=== PATIENT | female | born 1930 | race American Indian/Alaskan Native ===

== ENCOUNTER 2018-02-17 13:07 | Inpatient (IN) | payer MEDICARE, MEDICAID ==
[2018-02-17 13:08] VITALS: BMI 28.1
[2018-02-17 14:30] LABS: BASO # 0.1 K/uL (0.0-0.2); BASO % 0.4 % (0.0-2.0); EOS % 0.1 % (0.0-4.0); HEMOGLOBIN 13.8 g/dL (12.0-16.0); LYMPH # 0.5 K/uL (1.0-4.3); LYMPH % 3.1 % (20.0-40.0); MEAN CELL VOLUME 87.7 fl (81.0-99.0); MEAN CORPUSCULAR HGB CONC 31.9 g/dL (33.0-37.0); MEAN PLATELET VOLUME 9.3 fl (7.2-11.7); MONO # 1.1 K/uL (0.0-0.8); MONO % 6.8 % (0.0-10.0); NEUT % 89.6 % (50.0-75.0); PLATELET COUNT 257 K/uL (130-400); RBC 4.95 Mil/uL (3.80-5.20); RED CELL DISTRIBUTION WIDTH 19.4 % (11.5-14.5); WHITE BLOOD COUNT 15.6 K/uL (4.8-10.8)
--- NOTE | 2018-02-17 14:38 | RAD ---
HISTORY: altered mental statu COMPARISON: No prior. FINDINGS: LUNGS: Left basilar opacity likely reflects uhug-gk-vfeljcek pleural effusion with underlying infiltrate or atelectasis not excluded. None is seen at the right. No pneumothorax bilaterally. Cardiac silhouette may be enlarged. No pulmonary vascular derangement appreciable. Midline trachea is noted. Calcified lymph nodes or granulomata are seen at the left greater than right pulmonary hilum. PLEURA: As above. CARDIOVASCULAR: As above. OSSEOUS STRUCTURES: No significant abnormalities. VISUALIZED UPPER ABDOMEN: Normal. OTHER FINDINGS: None. IMPRESSION: Iezd-sj-qxwnfrvr left pleural effusion with underlying airspace disease not excluded at the left base. Likely cardiomegaly.
[2018-02-17 14:40] LABS: CALCIUM 9.7 mg/dL (8.4-10.2); GFR AFRICAN-AMERICAN 40; GFR NON-AFRICAN AMERICAN 33
--- NOTE | 2018-02-17 14:47 | ED PDOC ---
HPI: Altered Mental Status Time Seen by Provider: 02/17/18 13:15 Chief Complaint (Nursing): Altered Mental Status Chief Complaint (Provider): AMS History Per: Patient History/Exam Limitations: Clinical Condition Onset/Duration Of Symptoms: Hrs (today) Current Symptoms Are (Timing): Still Present Additional Complaint(s): Maria T Koenig is an 87 year old female, with a past medical history of renal disease, HTN, anxiety, depression, diabetes, CHF, COPD, behavioral problems, GERD and anemia, who was [facility] geropsychiatric evaluation. Patient was sent for saying the same things rin an agitated way at the jail. In the ER . Patient is repeating the same thing, not comprehending what is being told to her and not following commands PMD: [place] Carroll Past Medical History Reviewed: Historical Data, Nursing Documentation, Vital Signs Vital Signs: Last Vital Signs Temp 98.1 F 02/17/18 13:20 Pulse 111 H 02/17/18 14:41 Resp 22 02/17/18 14:41 BP 239/134 H 02/17/18 14:41 Pulse Ox 99 02/17/18 14:41 - Medical History PMH: Anemia, Anxiety, Arthritis, CAD, CHF, COPD, Depression, Diabetes, Gastrointestinal Ulcer, GERD, HTN, Hypercholesterolemia, Peripheral Edema, Chronic Kidney Disease - Surgical History Surgical History: Coronary Stent - Family History Family History: States: Unknown Family Hx - Living Arrangements Living Arrangements: Detention/Assist Lvng - Immunization History Hx Tetanus Toxoid Vaccination: Yes Hx Influenza Vaccination: Yes Hx Pneumococcal Vaccination: Yes - Home Medications Home Medications: Ambulatory Orders Medication Instructions Recorded Acetaminophen [Tylenol 325mg tab] 650 mg PO Q4 PRN 02/17/18 Acetaminophen [Tylenol 325mg tab] 650 mg PO Q4 PRN 02/17/18 Allopurinol [Zyloprim] 100 mg PO DAILY 02/17/18 Aspirin [Ecotrin] 81 mg PO DAILY 02/17/18 Brinzolamide [Azopt] 1 drop BOTHEYES TID 02/17/18 Calcitriol [Rocaltrol] 0.25 mcg PO DAILY 02/17/18 Ciclopirox [Penlac] 1 appl TOP HS 02/17/18 Diclofenac Sodium [Voltaren] 1 appl TOP BID 02/17/18 Divalproex [Depakote Sprinkles] 125 mg PO TID 02/17/18 Epoetin Carlos [Procrit] 10,000 unit SC TTS 02/17/18 GlipiZIDE [Glucotrol] 10 mg PO BID 02/17/18 Isosorbide Mononitrate [Imdur] 60 mg PO DAILY 02/17/18 Lactulose [Generlac] 30 ml PO DAILY PRN 02/17/18 Latanoprost [Xalatan] 1 drop BOTHEYES HS 02/17/18 Lidocaine 2% Gel [Xylocaine 2% 1 appl TOP QSHIFT 02/17/18 (Uro-Jet)] Linagliptin [Tradjenta] 5 mg PO DAILY 02/17/18 Losartan [Cozaar] 100 mg PO DAILY 02/17/18 M-Vit,Tx,Iron,Mins/Calc/Folic 1 tab PO QPM 02/17/18 [Thera-M Caplet] Metoprolol Tartrate [Lopressor] 25 mg PO Q8 02/17/18 Mirtazapine [Remeron] 15 mg PO HS 02/17/18 Propylene Glycol [Systane Balance] 1 drop BOTHEYES BID 02/17/18 Ranitidine HCl [Zantac] 150 mg PO HS 02/17/18 Sennosides/Docusate Sodium [Stool 1 tab PO BID 02/17/18 Softener-Laxative Tablet] Timolol Maleate [Timoptic-Xe] 1 drop BOTHEYES Q12 02/17/18 Torsemide [Demadex] 100 mg PO DAILY PRN 02/17/18 hydrALAZINE [Apresoline] 50 mg PO Q8 02/17/18 traMADol [Ultram] 50 mg PO Q12 02/17/18 - Allergies Allergies/Adverse Reactions: Allergies Allergy/AdvReac Type Severity Reaction Status Date / Time No Known Allergies Allergy Verified 12/10/17 18:41 Review of Systems Neurological: Positive for: Altered Mental Status Physical Exam - Reviewed Nursing Documentation Reviewed: Yes Vital Signs Reviewed: Yes - Physical Exam Appears: Positive for: Non-toxic Head Exam: Positive for: ATRAUMATIC, NORMOCEPHALIC Skin: Positive for: Normal Color, Warm, Dry Eye Exam: Positive for: Normal appearance Neck: Positive for: Painless ROM Cardiovascular/Chest: Positive for: Regular Rate, Rhythm. Negative for: Murmur Respiratory: Positive for: Normal Breath Sounds. Negative for: Respiratory Distress Gastrointestinal/Abdominal: Positive for: Normal Exam, Soft. Negative for: Tenderness Back: Positive for: Other (incontinent, in diaper) Extremity: Positive for: Normal ROM. Negative for: Deformity Neurologic/Psych: Positive for: Alert (awake), Other (persistently saying the same thing. ) - Laboratory Results Result Diagrams: 02/18/18 06:30 02/18/18 06:30 - ECG Interpretation Of Abn EKG: Appears to be possible atrial flutter O2 Sat by Pulse Oximetry: 99 (RA) Pulse Ox Interpretation: Normal Medical Decision Making Medical Decision Making: Initial Impression: AMS rule out infection, rule out beharbioal dist Initial Plan: --Alcohol serum --BMP --Drug screen, urine --CBC w/ differential --Chest portable [RAD] --Glucose, POC routine --Ativan 1 mg IM --Urine C&S --Urinalysis --Reevaluation 14:36 CXR FINDINGS: LUNGS: Left basilar opacity likely reflects pkye-ra-cjmirmpt pleural effusion with underlying infiltrate or atelectasis not excluded. None is seen at the right. No pneumothorax bilaterally. Cardiac silhouette may be enlarged. No pulmonary vascular derangement appreciable. Midline trachea is noted. Calcified lymph nodes or granulomata are seen at the left greater than right pulmonary hilum. PLEURA: As above. CARDIOVASCULAR: As above. OSSEOUS STRUCTURES: No significant abnormalities. VISUALIZED UPPER ABDOMEN: Normal. OTHER FINDINGS: None. IMPRESSION: Bofb-zy-gzqkgasf left pleural effusion with underlying airspace disease not excluded at the left base. Likely cardiomegaly. 16:57 -Elevated wbc. CXR show possible PNA. Patient cannot be cleared for psych. Patient will be admitted. PMD: Dr. Carroll. -Will contact hospitalist for admission. pt will remain on a 1 to 1 in the ER and as well as upstairs on the floor until seen by psych consult. sugar low, given one amp d50 1755 CT Head FINDINGS: HEMORRHAGE: No intracranial hemorrhage. BRAIN: Moderate atrophy is noted. Moderate to extensive white matter changes are also noted likely represent chronic microvascular ischemic disease. No atrophy or chronic microvascular ischemic changes. VENTRICLES: Unremarkable. No hydrocephalus. CALVARIUM: Unremarkable. PARANASAL SINUSES: Unremarkable as visualized. No significant inflammatory changes. MASTOID AIR CELLS: There is complete opacification of the right mastoid and right middle ear suspicious for otomastoiditis. The left mastoid is grossly unremarkable. OTHER FINDINGS: None. IMPRESSION: No evidence of acute intracranial hemorrhage mass effect or midline shift. Opacification of the right mastoid and middle ear suspicious for otomastoiditis. Moderate atrophy and moderate to extensive white matter changes likely represent chronic microvascular ischemic disease. 1830 Patient has already been given antibiotics and covered for otomastoiditis. Scribe Attestation: Documented by Se Anton, acting as a scribe for Yuliet Johnson MD Provider Scribe Attestation: All medical record entries made by the Scribe were at my direction and personally dictated by me. I have reviewed the chart and agree that the record accurately reflects my personal performance of the history, physical exam, medical decision making, and the department course for this patient. I have also personally directed, reviewed, and agree with the discharge instructions and disposition. Disposition - Clinical Impression Clinical Impression: Altered mental status, Pneumonia - Patient ED Disposition Is Patient to be Admitted: Yes Counseled Patient/Family Regarding: Diagnosis - Disposition Disposition Time: 15:00 Condition: STABLE
[2018-02-17 14:50] LABS: BLOOD UREA NITROGEN 22 mg/dl (7-17)
[2018-02-17 14:55] LABS: LYMPHOCYTE 6 % (20-50); MONOCYTE 7 % (0-10); NEUTROPHIL 87 % (42-75); PLATELET ESTIMATE NORMAL (NORMAL); TOTAL CELLS COUNTED 100
[2018-02-17 14:56] LABS: ANISOCYTOSIS SLIGHT
--- NOTE | 2018-02-17 16:14 | RAD ---
HISTORY: psychiatric clearance COMPARISON: Portable chest 02/17/2018. FINDINGS: LUNGS: Left basilar opacity is unchanged suggestive of likely grmd-xx-zxajbwyk left pleural effusion unchanged compared prior chest radiograph 2:04 p.m.. Underlying atelectasis or infiltrate is not excluded here. Right chest remains unremarkable with cardiomediastinal silhouette stable. PLEURA: No significant pleural effusion identified, no pneumothorax apparent. CARDIOVASCULAR: Cardiomegaly remains likely with left heart border partially obscured by a left basilar opacity. No definite interval pulmonary vascular derangement appreciable. OSSEOUS STRUCTURES: No significant abnormalities. VISUALIZED UPPER ABDOMEN: Normal. OTHER FINDINGS: Left hilar calcified lymph nodes or granuloma reiterated. IMPRESSION: Left basilar sklu-dd-lsrpgjdb pleural effusion again suggested with underlying atelectasis not excluded versus infiltrate. Likely cardiomegaly.
[2018-02-17] MEDS ORDERED: Lidocaine 2% GEL TOP SCH (17:00)
[2018-02-17] MEDS ORDERED: Sodium Chloride 3% for Inhalation 4 ML VIAL.NEB IH PRN (17:03)
[2018-02-17] MEDS: Artificial Tears Opht Soln OU SCH (17:57)
[2018-02-17] MEDS: Divalproex 125 mg Sprinkle Capsule PO SCH (17:57)
--- NOTE | 2018-02-17 17:57 | CT ---
PROCEDURE: CT HEAD WITHOUT CONTRAST. HISTORY: ams COMPARISON: None available. TECHNIQUE: Axial computed tomography images were obtained through the head/brain without intravenous contrast. Radiation dose: Total exam DLP = 1101.74 mGy-cm. This CT exam was performed using one or more of the following dose reduction techniques: Automated exposure control, adjustment of the mA and/or kV according to patient size, and/or use of iterative reconstruction technique. FINDINGS: HEMORRHAGE: No intracranial hemorrhage. BRAIN: Moderate atrophy is noted. Moderate to extensive white matter changes are also noted likely represent chronic microvascular ischemic disease. No atrophy or chronic microvascular ischemic changes. VENTRICLES: Unremarkable. No hydrocephalus. CALVARIUM: Unremarkable. PARANASAL SINUSES: Unremarkable as visualized. No significant inflammatory changes. MASTOID AIR CELLS: There is complete opacification of the right mastoid and right middle ear suspicious for otomastoiditis. The left mastoid is grossly unremarkable. OTHER FINDINGS: None. IMPRESSION: No evidence of acute intracranial hemorrhage mass effect or midline shift. Opacification of the right mastoid and middle ear suspicious for otomastoiditis. Moderate atrophy and moderate to extensive white matter changes likely represent chronic microvascular ischemic disease.
[2018-02-17] MEDS: Docusate-Senna 50 mg-8.6 mg Tab PO SCH (17:58)
[2018-02-17] MEDS: Dorzolamide 2% Ophth Soln OU SCH (17:58)
[2018-02-17] MEDS ORDERED: Dextrose 50% SYRINGE Inj (50 ml) IVP ONE (18:06)
[2018-02-17] MEDS ORDERED: Dextrose 50% SYRINGE Inj (50 ml) ONE (18:08)
[2018-02-17] MEDS: Multivitamin With Minerals Tab PO SCH (18:15)
--- NOTE | 2018-02-17 18:31 | CP.PCM.HP ---
History of Present Illness - History of Present Illness History of Present Illness: This is an 87 year old female with a past medical history of CKD? (although had normal renal function on 12/22/16), essential hypertension, type 2 DM, hypercholesterolemia, bilateral knee arthritis, gouty arthritis, spinal stenosis. diastolic CHF, CAD, gastrointestinal ulceration, presenting to the ED from [facility] due to worsening mental status and agitation. In the ED, the patient was acutely agitated and confused, trying to bite and hit medical staff, requiring 2 mg of Ativan IV before being sedated. She was initally going to be admitted to [facility], however she was found on labwork to have leukocytosis of 15.6 with neutrophilia. CXR shows Left basilar mild/moderate pleural effusion with possible infiltrate vs atelectasis. CT head was done which shows right sided otomastoiditis. She has bilateral pedal edema which is chronic as well. On telemetry the patient was found to be tachycardic with what appears to be atrial flutter. The patient is to be admitted to telemetry for further workup and management. She is unable to give ROS due to alteration of mental status. Present on Admission - Present on Admission Any Indicators Present on Admission: No Review of Systems - Review of Systems Review of Systems: A 12 point review of systems was conducted and found to be negative other than what was mentioned in the HPI. Past Patient History - Infectious Disease Hx of Infectious Diseases: None - Past Medical History & Family History Past Medical History?: Yes Past Family History: Reviewed and not pertinent - Past Social History Smoking Status: Never Smoked Alcohol: None Drugs: Denies Home Situation {Lives}: Alf - CARDIAC Hx Congestive Heart Failure: Yes Hx Hypercholesterolemia: Yes Hx Hypertension: Yes Hx Peripheral Edema: Yes - PULMONARY Hx Chronic Obstructive Pulmonary Disease (COPD): Yes - HEENT Hx HEENT Problems: Yes Hx Cataracts: Yes (both eyes,got operated on) Hx Glaucoma: Yes (ronald. eyes) Other/Comment: uses reading eyeglasses - RENAL Hx Chronic Kidney Disease: Yes - ENDOCRINE/METABOLIC Hx Endocrine Disorders: Yes Hx Diabetes Mellitus Type 2: Yes - HEMATOLOGICAL/ONCOLOGICAL Hx Anemia: Yes - INTEGUMENTARY Hx Dermatological Problems: No - MUSCULOSKELETAL/RHEUMATOLOGICAL Hx Arthritis: Yes - GASTROINTESTINAL Hx Gastrointestinal Disorders: Yes HX Swallowing Problems: Yes (as per HPI) - PSYCHIATRIC Hx Anxiety: Yes Hx Depression: Yes - SURGICAL HISTORY Hx Coronary Stent: Yes - ANESTHESIA Hx Anesthesia: Yes Hx Anesthesia Reactions: No Hx Malignant Hyperthermia: No Meds Allergies/Adverse Reactions: Allergies Allergy/AdvReac Type Severity Reaction Status Date / Time No Known Allergies Allergy Verified 12/10/17 18:41 Physical Exam - Additional Findings Additional findings: Physical exam: Constitutional- elderly confused and demented female, sedated, not oriented Head- NCAT, PERRL Eye- PERRL, EOMI ENT- normal exam, MMM. Neck- normal inspection, supple, no JVD Respiratory- CTAB, rales on left base, no rhonchi Cardiovascular- irregular rate and rhythm, tachycardia +S1, +S2 no MRG GI/Abdominal- normal bowel sounds, soft, no mass, no hsm Skin- warm, dry Extremities Exam- normal capillary refill, normal inspection Neurological Exam- unable to perform Psych- agitated previously, now sedated, confused Results - Vital Signs Recent Vital Signs: Last Vital Signs Temp 98.1 F 02/17/18 13:20 Pulse 104 H 02/17/18 17:58 Resp 22 02/17/18 14:41 BP 159/90 H 02/17/18 17:58 Pulse Ox 99 02/17/18 17:51 - Labs Result Diagrams: 02/17/18 14:20 02/17/18 14:20 Labs: Laboratory Results - last 24 hr 02/17/18 02/17/18 02/17/18 13:28 14:20 14:20 WBC 15.6 H RBC 4.95 Hgb 13.8 Hct 43.4 MCV 87.7 MCH 28.0 MCHC 31.9 L RDW 19.4 H Plt Count 257 MPV 9.3 Neut % (Auto) 89.6 H Lymph % (Auto) 3.1 L [place] % (Auto) 6.8 Eos % (Auto) 0.1 Baso % (Auto) 0.4 Neut # (Auto) 14.0 H Lymph # (Auto) 0.5 L [place] # (Auto) 1.1 H Eos # (Auto) 0.0 Baso # (Auto) 0.1 Neutrophils % (Manual) 87 H Lymphocytes % (Manual) 6 L Monocytes % (Manual) 7 Platelet Estimate Normal Anisocytosis (manual) Slight Sodium 146 Potassium 4.2 Chloride 102 Carbon Dioxide 25 Anion Gap 23 H BUN 22 H Creatinine 1.5 H Est GFR ( Amer) 40 Est GFR (Non-Af Amer) 33 POC Glucose (mg/dL) 87 Random Glucose 76 Calcium 9.7 Alcohol, Quantitative < 10 02/17/18 18:04 WBC RBC Hgb Hct MCV MCH MCHC RDW Plt Count MPV Neut % (Auto) Lymph % (Auto) [place] % (Auto) Eos % (Auto) Baso % (Auto) Neut # (Auto) Lymph # (Auto) [place] # (Auto) Eos # (Auto) Baso # (Auto) Neutrophils % (Manual) Lymphocytes % (Manual) Monocytes % (Manual) Platelet Estimate Anisocytosis (manual) Sodium Potassium Chloride Carbon Dioxide Anion Gap BUN Creatinine Est GFR ( Amer) Est GFR (Non-Af Amer) POC Glucose (mg/dL) 52 L Random Glucose Calcium Alcohol, Quantitative Assessment & Plan - Assessment and Plan (Free Text) Plan: ASSESSMENT/PLAN This is an 87 year old female with a past medical history of CKD? (although had normal renal function on 12/22/16), essential hypertension, type 2 DM, hypercholesterolemia, bilateral knee arthritis, gouty arthritis, spinal stenosis. diastolic CHF, CAD, gastrointestinal ulceration, presenting to the ED from [facility] due to worsening mental status and agitation. In the ED, the patient was acutely agitated and confused, trying to bite and hit medical staff, requiring 2 mg of Ativan IV before being sedated. She was initally going to be admitted to [facility], however she was found on labwork to have leukocytosis of 15.6 with neutrophilia. CXR shows Left basilar mild/moderate pleural effusion with possible infiltrate vs atelectasis. CT head was done which shows right sided otomastoiditis. She has bilateral pedal edema which is chronic as well. On telemetry the patient was found to be tachycardic with what appears to be atrial flutter. The patient is to be admitted to telemetry for further workup and management. 1) Nosocomial pneumonia vs atelectasis, with leukocytosis - Place on telemetry/obs - Consultation with Dr. Wright - Kody/Jasmine to be continued - Blood CX x 2 - sputum CX - f/u urinalysis and urine CX 2) Rapid atrial flutter on EKG, presumably new onset as there is no record of her having this on previous admissions - Consult Dr. Stinson, cardiology - Improved HR now, was tachy due to anxiety likely - Continue Lopressor 25 mg po q8h and titrate up if necessary - Anticoagulation is felt to be contraindicated due to acutely altered mental status and high risk of falls 3) Altered mental status - Toxic encephalopathy superimposed on dementia - Treat underlying pneumonia - Ativan 1 mg IVP PRN for agitation - 1:1 observation - Fall risk precautions - Continue Depakote - Psych consult for dementia 3) Mild diastolic CHF and pulmonary arterial hypertension hx with left sided mild to moderate pleural effusion - As per records - lopressor - Isosorbide mononitrate - Torsemide 100 mg po daily - Cardiology consultation 4) Type 2 DM - Restart diabetic oral medications - Lispro sliding scale - appears well controlled based on previous HGA1C of 6.0 - HGA1C 5) Uncontrolled HTN - Likely worsened acutely due to anxiety - Continue Cozaar 100 mg po daily - Lopressor as above 6) GERD, hx of esophageal ulcers - Continue Pepcid 20 mg po HS 7) DVT prophylaxis - SCDs
[2018-02-17 18:33] LABS: SQUAMOUS EPITHIAL < 1 /hpf (0-5); URINE BACTERIA RARE (<OCC); URINE BILIRUBIN NEGATIVE (NEGATIVE); URINE BLOOD NEGATIVE (NEGATIVE); URINE CLARITY SLIGHTY-CLOUDY (Clear); URINE COLOR YELLOW (YELLOW); URINE GLUCOSE (UA) NEG (Normal); URINE LEUKOCYTE ESTERASE SMALL Leu/uL (Negative); URINE PROTEIN 100 mg/dL (NEGATIVE); URINE UROBILINOGEN 0.2-1.0 mg/dL (0.2-1.0)
[2018-02-17] MEDS ORDERED: Sodium Chloride 0.9% 1,000 ML IV SCH (18:45)
[2018-02-17] MEDS ORDERED: Labetalol 5 mg/ml Inj 20ML IVP STA (18:49)
[2018-02-17 18:52] LABS: BARBITURATES, UR NEGATIVE (NEGATIVE); BENZODIAZEPINES, UR NEGATIVE (NEGATIVE); OPIATES, UR NEGATIVE (NEGATIVE); PHENCYCLIDINE, UR NEGATIVE (NEGATIVE)
[2018-02-17 20:04] LABS: VENOUS BLOOD GAS BASE EXCESS 5.8 mmol/L (0.0-2.0); VENOUS BLOOD GAS PCO2 47 mmHg (40-60); VENOUS BLOOD GAS PO2 51 mm/Hg (30-55); VENOUS BLOOD PH 7.43 (7.32-7.43)
[2018-02-17] MEDS: Insulin Lispro (humaLOG) 100 Units/ml Inj SC SCH (22:22)
[2018-02-17] MEDS: Latanoprost 0.005% Opht SOUTION OU SCH (22:30)
[2018-02-18] MEDS ORDERED: Metoprolol 1 mg/ml Inj IVP STA (04:33)
[2018-02-18 06:41] LABS: HEMOGLOBIN 13.4 g/dL (12.0-16.0); MEAN CELL VOLUME 86.3 fl (81.0-99.0); MEAN CORPUSCULAR HEMOGLOBIN 27.8 pg (27.0-31.0); MEAN CORPUSCULAR HGB CONC 32.2 g/dL (33.0-37.0); RBC 4.81 Mil/uL (3.80-5.20); RED CELL DISTRIBUTION WIDTH 19.1 % (11.5-14.5)
[2018-02-18 07:34] LABS: CALCIUM 9.5 mg/dL (8.4-10.2)
[2018-02-18] MEDS: Artificial Tears Opht Soln OU SCH ×2 (08:22→18:11)
[2018-02-18] MEDS: Divalproex 125 mg Sprinkle Capsule PO SCH ×3 (08:23→16:18)
[2018-02-18] MEDS: Docusate-Senna 50 mg-8.6 mg Tab PO SCH ×2 (08:26→16:20)
[2018-02-18] MEDS: Dorzolamide 2% Ophth Soln OU SCH ×3 (08:27→16:20)
[2018-02-18] MEDS: Insulin Lispro (humaLOG) 100 Units/ml Inj SC SCH ×4 (08:36→22:27)
[2018-02-18] MEDS ORDERED: EPOETIN ALFA 10,000 UNIT/ML ML SC SCH (09:00)
[2018-02-18] MEDS ORDERED: Potassium Chloride 20 mEq ER Tab PO ONE (10:00)
--- NOTE | 2018-02-18 10:18 | CARD ---
APPROVED REPORT EKG Measurement Heart [id number] <Conclusion> Probable multifocal atrial tachycardia Left axis deviation Nonspecific ST and T wave abnormality Abnormal ECG
[2018-02-18] MEDS ORDERED: Potassium Chloride 20 mEq 100 ML IVPB ONE ×2 (11:28→15:30)
--- NOTE | 2018-02-18 13:40 | CP.PCM.CON ---
History of Present Illness - History of Present Illness History of Present Illness: pt is an 87 year old female with a past history of dementia with behavioral disturbances , pt residing in jail , presented with altered mental status and agitation. In the ED, the patient was acutely agitated and confused, trying to bite and hit medical staff, pt was to be admitted to [facility], however she was found on labwork to have leukocytosis of 15.6 with neutrophilia pt admitted to medical floor , reported by staff to continue to have episodes of agitation , confusion, attempts to wander and refusing medications, poor sleep at night pt on evaluation has been drowzy as she was medicated , confused oriented to person only Past Patient History - Infectious Disease Hx of Infectious Diseases: None - Past Medical History & Family History Past Medical History?: Yes - Past Social History Smoking Status: Never Smoked - CARDIAC Hx Congestive Heart Failure: Yes Hx Hypercholesterolemia: Yes Hx Hypertension: Yes Hx Peripheral Edema: Yes - PULMONARY Hx Chronic Obstructive Pulmonary Disease (COPD): Yes - NEUROLOGICAL Hx Neurological Disorder: No - HEENT Hx HEENT Problems: Yes Hx Cataracts: Yes (both eyes,got operated on) Hx Glaucoma: Yes (ronald. eyes) Other/Comment: uses reading eyeglasses - RENAL Hx Chronic Kidney Disease: Yes - ENDOCRINE/METABOLIC Hx Endocrine Disorders: Yes Hx Diabetes Mellitus Type 2: Yes - HEMATOLOGICAL/ONCOLOGICAL Hx AIDS: No Hx Anemia: Yes Hx Human Immunodeficiency Virus (HIV): No - INTEGUMENTARY Hx Dermatological Problems: No - MUSCULOSKELETAL/RHEUMATOLOGICAL Hx Arthritis: Yes Hx Falls: Yes - GASTROINTESTINAL Hx Gastrointestinal Disorders: Yes Hx Gastroesophageal Reflux: Yes HX Swallowing Problems: Yes (as per HPI) Hx Ulcer: Yes - GENITOURINARY/GYNECOLOGICAL Hx Genitourinary Disorders: No - PSYCHIATRIC Hx Anxiety: Yes Hx Depression: Yes Hx Substance Use: No - SURGICAL HISTORY Hx Coronary Stent: Yes - ANESTHESIA Hx Anesthesia: Yes Hx Anesthesia Reactions: No Hx Malignant Hyperthermia: No Has any member of the family had a problem w/ anesthesia?: No Meds Allergies/Adverse Reactions: Allergies Allergy/AdvReac Type Severity Reaction Status Date / Time No Known Allergies Allergy Verified 12/10/17 18:41 - Medications Medications: Current Medications Acetaminophen (Tylenol 325mg Tab) 650 mg PO Q4 PRN PRN Reason: Temp >100 Acetaminophen (Tylenol 325mg Tab) 650 mg PO Q4 PRN PRN Reason: Pain, Mild (1-3) Allopurinol (Zyloprim) 100 mg PO DAILY [facility] Last Admin: 02/18/18 08:23 Dose: 100 mg Artificial Tears (Artificial Tears) 1 drop OU BID [facility] Last Admin: 02/18/18 08:22 Dose: 1 drop Aspirin (Ecotrin) 81 mg PO DAILY [facility] Last Admin: 02/18/18 08:24 Dose: 81 mg Divalproex Sodium (Depakote Sprinkles) 125 mg PO TID [facility] Last Admin: 02/18/18 13:11 Dose: Not Given Dorzolamide HCl (Trusopt) 1 drop OU TID [facility] Last Admin: 02/18/18 13:11 Dose: 1 drop Famotidine (Pepcid) 20 mg PO HS [facility] Last Admin: 02/17/18 22:32 Dose: 20 mg Glipizide (Glucotrol) 10 mg PO BID [facility] Last Admin: 02/18/18 08:25 Dose: 10 mg Haloperidol (Haldol) 0.5 mg PO Q8 PRN PRN Reason: Agitation Hydralazine HCl (Apresoline) 50 mg PO Q8 [facility] Last Admin: 02/18/18 08:24 Dose: 50 mg Vancomycin HCl 1 gm/ Sodium (Chloride) 250 mls @ 166.667 mls/hr IVPB DAILY [facility] PRN Reason: Protocol Last Admin: 02/18/18 08:43 Dose: 166.667 mls/hr Piperacillin Sod/Tazobactam (Sod 2.25 gm/ Sodium Chloride) 100 mls @ 100 mls/ hr IVPB Q8 [facility] PRN Reason: Protocol Last Admin: 02/18/18 08:43 Dose: 100 mls/hr Insulin Human Lispro (Humalog) 0 units SC ACCU-CHECK [facility] PRN Reason: Protocol Last Admin: 02/18/18 11:59 Dose: Not Given Isosorbide Mononitrate (Imdur) 60 mg PO DAILY [facility] Last Admin: 02/18/18 08:25 Dose: 60 mg Lactulose (Enulose) 20 gm PO DAILY PRN PRN Reason: Constipation Latanoprost (Xalatan Opht) 1 drop OU [facility] Last Admin: 02/17/18 22:30 Dose: 1 drop Lidocaine HCl (Xylocaine 2%) 1 [facility] Losartan Potassium (Cozaar) 100 mg PO DAILY [facility] Last Admin: 02/18/18 08:23 Dose: 100 mg Metoprolol Tartrate (Lopressor) 25 mg PO Q8 [facility] Last Admin: 02/18/18 08:23 Dose: 25 mg Mirtazapine (Remeron) 15 mg PO HS [facility] Last Admin: 02/17/18 22:32 Dose: 15 mg Multivitamins/Minerals (Therapeutic-M Tab) 1 tab PO QPM [facility] Last Admin: 02/17/18 18:15 Dose: Not Given Senna/Docusate Sodium (Senokot S 50 Mg-8.6 Mg) 1 tab PO BID [facility] Last Admin: 02/18/18 08:26 Dose: 1 tab Sitagliptin Phosphate (Januvia) 25 mg PO DAILY [facility] Last Admin: 02/18/18 08:26 Dose: 25 mg Timolol Maleate (Timoptic 0.5% Ophth Soln) 1 drop OU Q12 [facility] Last Admin: 02/18/18 09:30 Dose: 1 drop Torsemide (Demadex) 100 mg PO DAILY [facility] Last Admin: 02/18/18 08:26 Dose: 100 mg Tramadol HCl (Ultram) 50 mg PO Q12 [facility] Last Admin: 02/18/18 08:34 Dose: 50 mg Physical Exam - Psychiatric Exam Additional comments: pt seen in bed , confused oriented to person zen , unable to further assess mental status Results - Vital Signs Recent Vital Signs: Last Vital Signs Temp 98.2 F 02/18/18 12:10 Pulse 78 02/18/18 12:10 Resp 18 02/18/18 12:10 BP 163/78 H 02/18/18 12:10 Pulse Ox 98 02/18/18 12:10 - Labs Result Diagrams: 02/18/18 06:30 02/18/18 06:30 Labs: Laboratory Results - last 24 hr 02/17/18 02/17/18 02/17/18 13:28 14:20 14:20 WBC 15.6 H RBC 4.95 Hgb 13.8 Hct 43.4 MCV 87.7 MCH 28.0 MCHC 31.9 L RDW 19.4 H Plt Count 257 MPV 9.3 Neut % (Auto) 89.6 H Lymph % (Auto) 3.1 L [place] % (Auto) 6.8 Eos % (Auto) 0.1 Baso % (Auto) 0.4 Neut # (Auto) 14.0 H Lymph # (Auto) 0.5 L Stephen[place] # (Auto) 1.1 H Eos # (Auto) 0.0 Baso # (Auto) 0.1 Neutrophils % (Manual) 87 H Lymphocytes % (Manual) 6 L Monocytes % (Manual) 7 Platelet Estimate Normal Anisocytosis (manual) Slight pO2 VBG pH VBG pCO2 VBG HCO3 VBG Total CO2 VBG O2 Sat (Calc) VBG Base Excess VBG Potassium Glucose Lactate FiO2 Sodium 146 Potassium 4.2 Chloride 102 Carbon Dioxide 25 Anion Gap 23 H BUN 22 H Creatinine 1.5 H Est GFR ( Amer) 40 Est GFR (Non-Af Amer) 33 POC Glucose (mg/dL) 87 Random Glucose 76 Calcium 9.7 TSH 3rd Generation Venous Blood Potassium Urine Color Urine Clarity Urine pH Ur Specific [place] Urine Protein Urine Glucose (UA) Urine Ketones Urine Blood Urine Nitrate Urine Bilirubin Urine Urobilinogen Ur Leukocyte Esterase Urine RBC (Auto) Urine Microscopic WBC Ur Squamous Epith Cells Urine Bacteria Urine Opiates Screen Urine Methadone Screen Ur Barbiturates Screen Ur Phencyclidine Scrn Ur Amphetamines Screen U Benzodiazepines Scrn U Oth Cocaine Metabols U Cannabinoids Screen Alcohol, Quantitative < 10 02/17/18 02/17/18 02/17/18 18:00 18:00 18:04 WBC RBC Hgb Hct MCV MCH MCHC RDW Plt Count MPV Neut % (Auto) Lymph % (Auto) Stephenson % (Auto) Eos % (Auto) Baso % (Auto) Neut # (Auto) Lymph # (Auto) Stephenson # (Auto) Eos # (Auto) Baso # (Auto) Neutrophils % (Manual) Lymphocytes % (Manual) Monocytes % (Manual) Platelet Estimate Anisocytosis (manual) pO2 VBG pH VBG pCO2 VBG HCO3 VBG Total CO2 VBG O2 Sat (Calc) VBG Base Excess VBG Potassium Glucose Lactate FiO2 Sodium Potassium Chloride Carbon Dioxide Anion Gap BUN Creatinine Est GFR ( Amer) Est GFR (Non-Af Amer) POC Glucose (mg/dL) 52 L Random Glucose Calcium TSH 3rd Generation Venous Blood Potassium Urine Color Yellow Urine Clarity Slighty-cloudy Urine pH 6.0 Ur Specific [place] 1.012 Urine Protein 100 Urine Glucose (UA) Neg Urine Ketones Trace Urine Blood Negative Urine Nitrate Negative Urine Bilirubin Negative Urine Urobilinogen 0.2-1.0 Ur Leukocyte Esterase Small Urine RBC (Auto) 3 Urine Microscopic WBC 5 Ur Squamous Epith Cells < 1 Urine Bacteria Rare Urine Opiates Screen Negative Urine Methadone Screen Negative Ur Barbiturates Screen Negative Ur Phencyclidine Scrn Negative Ur Amphetamines Screen Negative U Benzodiazepines Scrn Negative U Oth Cocaine Metabols Negative U Cannabinoids Screen Negative Alcohol, Quantitative 02/17/18 02/17/18 02/17/18 19:51 20:00 21:37 WBC RBC Hgb Hct MCV MCH MCHC RDW Plt Count MPV Neut % (Auto) Lymph % (Auto) [place] % (Auto) Eos % (Auto) Baso % (Auto) Neut # (Auto) Lymph # (Auto) [place] # (Auto) Eos # (Auto) Baso # (Auto) Neutrophils % (Manual) Lymphocytes % (Manual) Monocytes % (Manual) Platelet Estimate Anisocytosis (manual) pO2 51 VBG pH 7.43 VBG pCO2 47 VBG HCO3 29.2 VBG Total CO2 32.6 H VBG O2 Sat (Calc) 86.2 H VBG Base Excess 5.8 H VBG Potassium 3.5 L Glucose 137 H Lactate 1.4 FiO2 21.0 Sodium 143.0 Potassium Chloride 106.0 Carbon Dioxide Anion Gap BUN Creatinine Est GFR ( Amer) Est GFR (Non-Af Amer) POC Glucose (mg/dL) 131 H 111 H Random Glucose Calcium TSH 3rd Generation Venous Blood Potassium 3.5 L Urine Color Urine Clarity Urine pH Ur Specific [place] Urine Protein Urine Glucose (UA) Urine Ketones Urine Blood Urine Nitrate Urine Bilirubin Urine Urobilinogen Ur Leukocyte Esterase Urine RBC (Auto) Urine Microscopic WBC Ur Squamous Epith Cells Urine Bacteria Urine Opiates Screen Urine Methadone Screen Ur Barbiturates Screen Ur Phencyclidine Scrn Ur Amphetamines Screen U Benzodiazepines Scrn U Oth Cocaine Metabols U Cannabinoids Screen Alcohol, Quantitative 02/18/18 02/18/18 02/18/18 06:06 06:30 06:30 WBC 14.0 H RBC 4.81 Hgb 13.4 Hct 41.5 MCV 86.3 MCH 27.8 MCHC 32.2 L RDW 19.1 H Plt Count 199 MPV Neut % (Auto) Lymph % (Auto) [place] % (Auto) Eos % (Auto) Baso % (Auto) Neut # (Auto) Lymph # (Auto) [place] # (Auto) Eos # (Auto) Baso # (Auto) Neutrophils % (Manual) Lymphocytes % (Manual) Monocytes % (Manual) Platelet Estimate Anisocytosis (manual) pO2 VBG pH VBG pCO2 VBG HCO3 VBG Total CO2 VBG O2 Sat (Calc) VBG Base Excess VBG Potassium Glucose Lactate FiO2 Sodium 144 Potassium 3.5 L Chloride 105 Carbon Dioxide 26 Anion Gap 17 BUN 21 H Creatinine 1.5 H Est GFR ( Amer) 40 Est GFR (Non-Af Amer) 33 POC Glucose (mg/dL) 123 H Random Glucose 132 H Calcium 9.5 TSH 3rd Generation 3.32 Venous Blood Potassium Urine Color Urine Clarity Urine pH Ur Specific [place] Urine Protein Urine Glucose (UA) Urine Ketones Urine Blood Urine Nitrate Urine Bilirubin Urine Urobilinogen Ur Leukocyte Esterase Urine RBC (Auto) Urine Microscopic WBC Ur Squamous Epith Cells Urine Bacteria Urine Opiates Screen Urine Methadone Screen Ur Barbiturates Screen Ur Phencyclidine Scrn Ur Amphetamines Screen U Benzodiazepines Scrn U Oth Cocaine Metabols U Cannabinoids Screen Alcohol, Quantitative Assessment & Plan - Assessment and Plan (Free Text) Assessment: Major neurocognitive disorder with behavioral disturbances delirium Plan: pt possibly suffering from delirium on top of dementia/ due to possible infection recommend start haloperidol 0.5mg q8 for agitation avoid benzodiazepines for possible paradoxiacal reaction depakote can be increased to 250mg tid if needed pt could be transferred to [facility] for further stbilization upon medical clearence and the consent of JULIANN
--- NOTE | 2018-02-18 14:25 | CP.PCM.CON ---
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 ID consulted concerning nosocomial pneumonia (vs. atelectasis). Patient asleep during time of visit, unarousable, unable to obtain HPI. 1:1 sitter present. Per chart, patient presented to ED with plan to admit to [facility] for AMS and agitation but was found to have leukocytosis 15.6, CXR revealed pleural effusion with infiltrate vs. atelectasis, and CT suspicious for right otomastoiditis, so was admitted to telemetry for further evaluation. Review of Systems - Review of Systems All systems: reviewed and no additional remarkable complaints except (as per HPI ) Past Patient History - Infectious Disease Hx of Infectious Diseases: None - Past Medical History & Family History Past Medical History?: Yes - Past Social History Smoking Status: Never Smoked - CARDIAC Hx Congestive Heart Failure: Yes Hx Hypercholesterolemia: Yes Hx Hypertension: Yes Hx Peripheral Edema: Yes - PULMONARY Hx Chronic Obstructive Pulmonary Disease (COPD): Yes - NEUROLOGICAL Hx Neurological Disorder: No - HEENT Hx HEENT Problems: Yes Hx Cataracts: Yes (both eyes,got operated on) Hx Glaucoma: Yes (ronald. eyes) Other/Comment: uses reading eyeglasses - RENAL Hx Chronic Kidney Disease: Yes - ENDOCRINE/METABOLIC Hx Endocrine Disorders: Yes Hx Diabetes Mellitus Type 2: Yes - HEMATOLOGICAL/ONCOLOGICAL Hx AIDS: No Hx Anemia: Yes Hx Human Immunodeficiency Virus (HIV): No - INTEGUMENTARY Hx Dermatological Problems: No - MUSCULOSKELETAL/RHEUMATOLOGICAL Hx Arthritis: Yes Hx Falls: Yes - GASTROINTESTINAL Hx Gastrointestinal Disorders: Yes Hx Gastroesophageal Reflux: Yes HX Swallowing Problems: Yes (as per HPI) Hx Ulcer: Yes - GENITOURINARY/GYNECOLOGICAL Hx Genitourinary Disorders: No - PSYCHIATRIC Hx Anxiety: Yes Hx Depression: Yes Hx Substance Use: No - SURGICAL HISTORY Hx Coronary Stent: Yes - ANESTHESIA Hx Anesthesia: Yes Hx Anesthesia Reactions: No Hx Malignant Hyperthermia: No Has any member of the family had a problem w/ anesthesia?: No Meds Allergies/Adverse Reactions: Allergies Allergy/AdvReac Type Severity Reaction Status Date / Time No Known Allergies Allergy Verified 12/10/17 18:41 - Medications Medications: Current Medications Acetaminophen (Tylenol 325mg Tab) 650 mg PO Q4 PRN PRN Reason: Temp >100 Acetaminophen (Tylenol 325mg Tab) 650 mg PO Q4 PRN PRN Reason: Pain, Mild (1-3) Allopurinol (Zyloprim) 100 mg PO DAILY [facility] Last Admin: 02/18/18 08:23 Dose: 100 mg Artificial Tears (Artificial Tears) 1 drop OU BID [facility] Last Admin: 02/18/18 08:22 Dose: 1 drop Aspirin (Ecotrin) 81 mg PO DAILY [facility] Last Admin: 02/18/18 08:24 Dose: 81 mg Divalproex Sodium (Depakote Sprinkles) 125 mg PO TID [facility] Last Admin: 02/18/18 13:11 Dose: Not Given Dorzolamide HCl (Trusopt) 1 drop OU TID [facility] Last Admin: 02/18/18 13:11 Dose: 1 drop Famotidine (Pepcid) 20 mg PO HS [facility] Last Admin: 02/17/18 22:32 Dose: 20 mg Glipizide (Glucotrol) 10 mg PO BID [facility] Last Admin: 02/18/18 08:25 Dose: 10 mg Haloperidol (Haldol) 0.5 mg PO Q8 PRN PRN Reason: Agitation Hydralazine HCl (Apresoline) 50 mg PO Q8 [facility] Last Admin: 02/18/18 08:24 Dose: 50 mg Vancomycin HCl 1 gm/ Sodium (Chloride) 250 mls @ 166.667 mls/hr IVPB DAILY [facility] PRN Reason: Protocol Last Admin: 02/18/18 08:43 Dose: 166.667 mls/hr Piperacillin Sod/Tazobactam (Sod 2.25 gm/ Sodium Chloride) 100 mls @ 100 mls/ hr IVPB Q8 [facility] PRN Reason: Protocol Last Admin: 02/18/18 08:43 Dose: 100 mls/hr Insulin Human Lispro (Humalog) 0 units SC ACCU-CHECK [facility] PRN Reason: Protocol Last Admin: 02/18/18 11:59 Dose: Not Given Isosorbide Mononitrate (Imdur) 60 mg PO DAILY [facility] Last Admin: 02/18/18 08:25 Dose: 60 mg Lactulose (Enulose) 20 gm PO DAILY PRN PRN Reason: Constipation Latanoprost (Xalatan Opht) 1 drop OU [facility] Last Admin: 02/17/18 22:30 Dose: 1 drop Lidocaine HCl (Xylocaine 2%) 1 applic TOP QSHIFT [facility] Losartan Potassium (Cozaar) 100 mg PO DAILY [facility] Last Admin: 02/18/18 08:23 Dose: 100 mg Metoprolol Tartrate (Lopressor) 25 mg PO Q8 [facility] Last Admin: 02/18/18 08:23 Dose: 25 mg Mirtazapine (Remeron) 15 mg PO HS [facility] Last Admin: 02/17/18 22:32 Dose: 15 mg Multivitamins/Minerals (Therapeutic-M Tab) 1 tab PO QPM [facility] Last Admin: 02/17/18 18:15 Dose: Not Given Senna/Docusate Sodium (Senokot S 50 Mg-8.6 Mg) 1 tab PO BID [facility] Last Admin: 02/18/18 08:26 Dose: 1 tab Sitagliptin Phosphate (Januvia) 25 mg PO DAILY [facility] Last Admin: 02/18/18 08:26 Dose: 25 mg Timolol Maleate (Timoptic 0.5% [facility] Sol) 1 drop OU Q12 [facility] Last Admin: 02/18/18 09:30 Dose: 1 drop Torsemide (Demadex) 100 mg PO DAILY [facility] Last Admin: 02/18/18 08:26 Dose: 100 mg Tramadol HCl (Ultram) 50 mg PO Q12 [facility] Last Admin: 02/18/18 08:34 Dose: 50 mg Physical Exam - Constitutional Appears: Well, Non-toxic, No Acute Distress - Head Exam Head Exam: NORMAL INSPECTION, NORMOCEPHALIC - Eye Exam Eye Exam: Normal appearance - ENT Exam ENT Exam: Mucous Membranes Moist, Normal Exam - Neck Exam Neck exam: Positive for: Normal Inspection - Respiratory Exam Respiratory Exam: Rales. absent: Accessory Muscle Use, Chest Wall Tenderness - Cardiovascular Exam Cardiovascular Exam: Tachycardia, Irregular Rhythm. absent: Diastolic murmur, REGULAR RHYTHM, Systolic Murmur - GI/Abdominal Exam GI & Abdominal Exam: Normal Bowel Sounds, Soft. absent: Tenderness - Extremities Exam Extremities exam: Positive for: pedal edema (upper and lower +1 pitting edema bilaterally) - Neurological Exam Additional comments: Unable to assess - Psychiatric Exam Additional comments: Unable to assess - Skin Skin Exam: Dry, Warm Results - Vital Signs Recent Vital Signs: Last Vital Signs Temp 98.2 F 02/18/18 12:10 Pulse 78 02/18/18 12:10 Resp 18 02/18/18 12:10 BP 163/78 H 02/18/18 12:10 Pulse Ox 98 02/18/18 12:10 - Labs Result Diagrams: 02/18/18 06:30 02/18/18 06:30 Labs: Laboratory Results - last 24 hr 02/17/18 02/17/18 02/17/18 14:20 14:20 18:00 WBC 15.6 H RBC 4.95 Hgb 13.8 Hct 43.4 MCV 87.7 MCH 28.0 MCHC 31.9 L RDW 19.4 H Plt Count 257 MPV 9.3 Neut % (Auto) 89.6 H Lymph % (Auto) 3.[address] % (Auto) 6.8 Eos % (Auto) 0.1 Baso % (Auto) 0.4 Neut # (Auto) 14.0 H Lymph # (Auto) 0.[address] # (Auto) 1.1 H Eos # (Auto) 0.0 Baso # (Auto) 0.1 Neutrophils % (Manual) 87 H Lymphocytes % (Manual) 6 L Monocytes % (Manual) 7 Platelet Estimate Normal Anisocytosis (manual) Slight pO2 VBG pH VBG pCO2 VBG HCO3 VBG Total CO2 VBG O2 Sat (Calc) VBG Base Excess VBG Potassium Glucose Lactate FiO2 Sodium 146 Potassium 4.2 Chloride 102 Carbon Dioxide 25 Anion Gap 23 H BUN 22 H Creatinine 1.5 H Est GFR ( Amer) 40 Est GFR (Non-Af Amer) 33 POC Glucose (mg/dL) Random Glucose 76 Calcium 9.7 TSH 3rd Generation Venous Blood Potassium Urine Color Urine Clarity Urine pH Ur Specific [place] Urine Protein Urine Glucose (UA) Urine Ketones Urine Blood Urine Nitrate Urine Bilirubin Urine Urobilinogen Ur Leukocyte Esterase Urine RBC (Auto) Urine Microscopic WBC Ur Squamous Epith Cells Urine Bacteria Urine Opiates Screen Negative Urine Methadone Screen Negative Ur Barbiturates Screen Negative Ur Phencyclidine Scrn Negative Ur Amphetamines Screen Negative U Benzodiazepines Scrn Negative U Oth Cocaine Metabols Negative U Cannabinoids Screen Negative Alcohol, Quantitative < 10 02/17/18 02/17/18 02/17/18 18:00 18:04 19:51 WBC RBC Hgb Hct MCV MCH MCHC RDW Plt Count MPV Neut % (Auto) Lymph % (Auto) Lane % (Auto) Eos % (Auto) Baso % (Auto) Neut # (Auto) Lymph # (Auto) Lane # (Auto) Eos # (Auto) Baso # (Auto) Neutrophils % (Manual) Lymphocytes % (Manual) Monocytes % (Manual) Platelet Estimate Anisocytosis (manual) pO2 VBG pH VBG pCO2 VBG HCO3 VBG Total CO2 VBG O2 Sat (Calc) VBG Base Excess VBG Potassium Glucose Lactate FiO2 Sodium Potassium Chloride Carbon Dioxide Anion Gap BUN Creatinine Est GFR ( Amer) Est GFR (Non-Af Amer) POC Glucose (mg/dL) 52 L 131 H Random Glucose Calcium TSH 3rd Generation Venous Blood Potassium Urine Color Yellow Urine Clarity Slighty-cloudy Urine pH 6.0 Ur Specific [place] 1.012 Urine Protein 100 Urine Glucose (UA) Neg Urine Ketones Trace Urine Blood Negative Urine Nitrate Negative Urine Bilirubin Negative Urine Urobilinogen 0.2-1.0 Ur Leukocyte Esterase Small Urine RBC (Auto) 3 Urine Microscopic WBC 5 Ur Squamous Epith Cells < 1 Urine Bacteria Rare Urine Opiates Screen Urine Methadone Screen Ur Barbiturates Screen Ur Phencyclidine Scrn Ur Amphetamines Screen U Benzodiazepines Scrn U Oth Cocaine Metabols U Cannabinoids Screen Alcohol, Quantitative 02/17/18 02/17/18 02/18/18 20:00 21:37 06:06 WBC RBC Hgb Hct MCV MCH MCHC RDW Plt Count MPV Neut % (Auto) Lymph % (Auto) Lane % (Auto) Eos % (Auto) Baso % (Auto) Neut # (Auto) Lymph # (Auto) Lane # (Auto) Eos # (Auto) Baso # (Auto) Neutrophils % (Manual) Lymphocytes % (Manual) Monocytes % (Manual) Platelet Estimate Anisocytosis (manual) pO2 51 VBG pH 7.43 VBG pCO2 47 VBG HCO3 29.2 VBG Total CO2 32.6 H VBG O2 Sat (Calc) 86.2 H VBG Base Excess 5.8 H VBG Potassium 3.5 L Glucose 137 H Lactate 1.4 FiO2 21.0 Sodium 143.0 Potassium Chloride 106.0 Carbon Dioxide Anion Gap BUN Creatinine Est GFR ( Amer) Est GFR (Non-Af Amer) POC Glucose (mg/dL) 111 H 123 H Random Glucose Calcium TSH 3rd Generation Venous Blood Potassium 3.5 L Urine Color Urine Clarity Urine pH Ur Specific [place] Urine Protein Urine Glucose (UA) Urine Ketones Urine Blood Urine Nitrate Urine Bilirubin Urine Urobilinogen Ur Leukocyte Esterase Urine RBC (Auto) Urine Microscopic WBC Ur Squamous Epith Cells Urine Bacteria Urine Opiates Screen Urine Methadone Screen Ur Barbiturates Screen Ur Phencyclidine Scrn Ur Amphetamines Screen U Benzodiazepines Scrn U Oth Cocaine Metabols U Cannabinoids Screen Alcohol, Quantitative 02/18/18 02/18/18 06:30 06:30 WBC 14.0 H RBC 4.81 Hgb 13.4 Hct 41.5 MCV 86.3 MCH 27.8 MCHC 32.2 L RDW 19.1 H Plt Count 199 MPV Neut % (Auto) Lymph % (Auto) Lane % (Auto) Eos % (Auto) Baso % (Auto) Neut # (Auto) Lymph # (Auto) Lane # (Auto) Eos # (Auto) Baso # (Auto) Neutrophils % (Manual) Lymphocytes % (Manual) Monocytes % (Manual) Platelet Estimate Anisocytosis (manual) pO2 VBG pH VBG pCO2 VBG HCO3 VBG Total CO2 VBG O2 Sat (Calc) VBG Base Excess VBG Potassium Glucose Lactate FiO2 Sodium 144 Potassium 3.5 L Chloride 105 Carbon Dioxide 26 Anion Gap 17 BUN 21 H Creatinine 1.5 H Est GFR ( Amer) 40 Est GFR (Non-Af Amer) 33 POC Glucose (mg/dL) Random Glucose 132 H Calcium 9.5 TSH 3rd Generation 3.32 Venous Blood Potassium Urine Color Urine Clarity Urine pH Ur Specific [place] Urine Protein Urine Glucose (UA) Urine Ketones Urine Blood Urine Nitrate Urine Bilirubin Urine Urobilinogen Ur Leukocyte Esterase Urine RBC (Auto) Urine Microscopic WBC Ur Squamous Epith Cells Urine Bacteria Urine Opiates Screen Urine Methadone Screen Ur Barbiturates Screen Ur Phencyclidine Scrn Ur Amphetamines Screen U Benzodiazepines Scrn U Oth Cocaine Metabols U Cannabinoids Screen Alcohol, Quantitative Assessment & Plan (1) Nosocomial pneumonia Status: Acute (2) Atelectasis Status: Acute (3) Edema extremities Status: Acute - Assessment and Plan (Free Text) Plan: Patient seen and evaluated Continue present management Afebrile currently (Tmax 101.2 yest), tachycardic, hypertensive Reviewed CXR, CTH Continue Vancomycin 1g IV, Zosyn 2.25g IV (day 2) pending blood cultures, sputum cultures, urine cultures F/u ENT recs Will continue to follow <Jose Eduardo Wright - Last Filed: 02/18/18 19:02> Review of Systems - Review of Systems Systems not reviewed;Unavailable: Altered Mental Status - Constitutional Constitutional: As Per HPI - EENT Eyes: absent: As Per HPI, Blind Spots, Blurred Vision, Change in Vision, Decreased Night Vision, Diplopia, Discharge, Dry Eye, Exophthalmos, Floaters, Irritation, Itchy Eyes, Loss of Peripheral Vision, Pain, Photophobia, Requires Corrective Lenses, Sees Flashes, Spots in Vision, Tunnel Vision, Other Visual Disturbances, Loss of Vision, Other Ears: absent: As Per HPI, Decreased Hearing, Ear Discharge, Ear Pain, Tinnitus, Abnormal Hearing, Disequilibrium, Dizziness, Other Nose/Mouth/Throat: absent: As Per HPI, Epistaxis, Nasal Congestion, Nasal Discharge, Nasal Obstruction, Nasal Trauma, Nose Pain, Post Nasal Drip, Sinus Pain, Sinus Pressure, Bleeding Gums, Change in Voice, Dental Pain, Dry Mouth, Dysphagia, Halitosis, Hoarsness, Lip Swelling, Mouth Lesions, Mouth Pain, Odynophagia, Sore Throat, Throat Swelling, Tongue Swelling, Facial Pain, Neck Pain, Neck Mass, Other - Breasts Breasts: absent: As Per HPI, Change in Shape, Mass, Pain, Nipple Discharge, Nipple Inversion, Skin Changes, Swelling, Other - Cardiovascular Cardiovascular: absent: As Per HPI, Acrocyanosis, Chest Pain, Chest Pain at Rest , Chest Pain with Activity, Claudication, Diaphoresis, Dyspnea, Dyspnea on Exertion, Edema, Irregular Heart Rhythm, Pain Radiating to Arm/Neck/Jaw, Leg Edema, Leg Ulcers, Lightheadedness, Orthopnea, Palpitations, Paroxysmal Nocturnal Dyspnea, Pedal Edema, Radiating Pain, Rapid Heart Rate, Slow Heart Rate, Syncope, Other - Respiratory Respiratory: As Per HPI - Gastrointestinal Gastrointestinal: absent: As Per HPI, Abdominal Pain, Belching, Bloating, Change in Bowel Habits, Change in Stool Character, Coffee Ground Emesis, Constipation, Cramping, Diarrhea, Dyspepsia, Dysphagia, Early Satiety, Excessive Flatus, Fecal Incontinence, Heartburn, Hematemesis, Hematochezia, Loose Stools, Melena, Nausea, Odynophagia, Temesmus, Vomiting, Other - Genitourinary Genitourinary: absent: As Per HPI, Change in Urinary Stream, Difficulty Urinating, Dysuria, Flank Pain, Hematuria, Pyuria, Nocturia, Urinary Incontinence, Urinary Frequency, Urinary Hesitance, Urinary Urgency, Voiding Freq/Small Amts, Freq UTI, Hx Renal/Bladder Calculi, Hx /Renal Surgery, Bladder Distension, Other - Reproductive: Female Reproductive:Female: absent: As Per HPI, Amenorrhea, Amenorrhea/ Control, Currently Menstual, Cycle <21 Days, Cycle >35 Days, Cycle Variable, Menses 1-7 Days, Menses >/= 8 Days, Menses Variable, Cycle > 4 Weeks Between, No Menses for 6 Months, Heavy Menses, Light Menses, Normal Menses, Spotting Between Cycles , S/P Hysterectomy, Menopausal, Post Menopausal, Premenarche, Abnormal Vaginal Bleeding, Dysmenorrhea, Dyspareunia, Genital Lesions, Genital Pruritis, Pelvic Pain, Prolapse Symptoms, Sexual Dysfunction, Vaginal Discharge, Vaginal Dryness , Vaginal Odor, Vaginal Pruritis, Other - Menstruation Menstruation: absent: As Per HPI, Amenorrhea, Amenorrhea/ Control, Currently Menstual, Cycle <21 Days, Cycle >35 Days, Cycle Variable, Menses 1-7 Days, Menses >/= 8 Days, Menses Variable, Cycle > 4 Weeks Between, No Menses for 6 Months, Heavy Menses, Light Menses, Normal Menses, Spotting Between Cycles , S/P Hysterectomy, Menopausal, Post Menopausal, Premenarche, Abnormal Vaginal Bleeding, Dysmenorrhea, Other - Musculoskeletal Musculoskeletal: absent: As Per HPI, Abnormal Gait, Arthralgias, Atrophy, Back Pain, Deformity, Joint Swelling, Limited Range of Motion, Loss of Height, Muscle Cramps, Muscle Weakness, Myalgias, Neck Pain, Numbness, Radiating Pain into Limb, Stiffness, Tingling, Other - Integumentary Integumentary: absent: As Per HPI, Acne, Alopecia, Bleeding Lesions, Change in Hair, Change in Nails, Change in Pigmentation, Changing Lesions, Dry Skin, Erythema, Furuncle, Hirsutism, Lesions, New Lesions, Non-Healing Lesions, Photosensitivity, Pruritus, Rash, Skin Pain, Skin Ulcer, Sores, Striae, Swelling , Unusual Bruising, Wounds, Jaundice, Other - Neurological Neurological: absent: As Per HPI, Abnormal Gait, Abnormal Hearing, Abnormal Movements, Abnormal Speech, Behavioral Changes, Burning Sensations, Confusion, Convulsions, Disequilibrium, Dizziness, Numbness, Focal Weakness, Frequent Falls , Headaches, Lack of Coordination, Loss of Vision, Memory Loss, Paresthesias, Radicular Pain, Restless Legs, Sensory Deficit, Syncope, Tingling, Tremor, Vertigo, Weakness, Other Visual Disturbances, Other - Psychiatric Psychiatric: absent: As Per HPI, Abnormal Sleep Pattern, Anhedonia, Anxiety, Auditory Hallucinations, Behavioral Changes, Change in Appetite, Change in Libido, Confusion, Depression, Difficulty Concentrating, Hallucinations, Homicidal Ideation, Hopelessness, Irritability, Memory Loss, Mood Swings, Panic Attacks, Paranoia, Suicidal Ideation, Visual Hallucinations, Tactile Hallucinations, Other - Endocrine Endocrine: absent: As Per HPI, Change in Body Appearance, Change in Libido, Cold Intolorance, Deepening of Voice, Excessive Sweating, Fatigue, Flushing, Heat Intolorance, Increase in Ring/Shoe/Hat Size, Palpitations, Polydipsia, Polyphagia, Polyuria, Other - Hematologic/Lymphatic Hematologic: absent: As Per HPI, Easy Bleeding, Easy Bruising, Lymphadenopathy, Other Meds - Medications Medications: Current Medications Acetaminophen (Tylenol 325mg Tab) 650 mg PO Q4 PRN PRN Reason: Temp >100 Acetaminophen (Tylenol 325mg Tab) 650 mg PO Q4 PRN PRN Reason: Pain, Mild (1-3) Allopurinol (Zyloprim) 100 mg PO DAILY [facility] Last Admin: 02/18/18 08:23 Dose: 100 mg Artificial Tears (Artificial Tears) 1 drop OU BID [facility] Last Admin: 02/18/18 18:11 Dose: 1 drop Aspirin (Ecotrin) 81 mg PO DAILY [facility] Last Admin: 02/18/18 08:24 Dose: 81 mg Divalproex Sodium (Depakote Sprinkles) 125 mg PO TID [facility] Last Admin: 02/18/18 16:18 Dose: Not Given Dorzolamide HCl (Trusopt) 1 drop OU TID [facility] Last Admin: 02/18/18 16:20 Dose: 1 drop Famotidine (Pepcid) 20 mg PO HS [facility] Last Admin: 02/17/18 22:32 Dose: 20 mg Glipizide (Glucotrol) 10 mg PO BID [facility] Last Admin: 02/18/18 18:12 Dose: Not Given Haloperidol (Haldol) 0.5 mg PO Q8 PRN PRN Reason: Agitation Hydralazine HCl (Apresoline) 50 mg PO Q8 [facility] Last Admin: 02/18/18 18:17 Dose: 50 mg Vancomycin HCl 1 gm/ Sodium (Chloride) 250 mls @ 166.667 mls/hr IVPB DAILY [facility] PRN Reason: Protocol Last Admin: 02/18/18 08:43 Dose: 166.667 mls/hr Piperacillin Sod/Tazobactam (Sod 2.25 gm/ Sodium Chloride) 100 mls @ 100 mls/ hr IVPB Q8 [facility] PRN Reason: Protocol Last Admin: 02/18/18 16:22 Dose: 100 mls/hr Dextrose/Sodium Chloride (Dextrose 5%/0.45% Ns 1000 Ml) 1,000 mls @ 80 mls/hr IV .[id number] [facility] Stop: 02/19/18 15:32 Last Admin: 02/18/18 15:56 Dose: 80 mls/hr Insulin Human Lispro (Humalog) 0 units SC ACCU-CHECK [facility] PRN Reason: Protocol Last Admin: 02/18/18 16:19 Dose: Not Given Isosorbide Mononitrate (Imdur) 60 mg PO DAILY [facility] Last Admin: 02/18/18 08:25 Dose: 60 mg Lactulose (Enulose) 20 gm PO DAILY PRN PRN Reason: Constipation Latanoprost (Xalatan Opht) 1 drop OU HS [facility] Last Admin: 02/17/18 22:30 Dose: 1 drop Lidocaine HCl (Xylocaine 2%) 1 applic TOP QSHIFT [facility] Losartan Potassium (Cozaar) 100 mg PO DAILY [facility] Last Admin: 02/18/18 08:23 Dose: 100 mg Metoprolol Tartrate (Lopressor) 25 mg PO Q8 [facility] Last Admin: 02/18/18 18:15 Dose: 25 mg Metoprolol Tartrate (Lopressor) 2.5 mg IVP Q6 [facility] Mirtazapine (Remeron) 15 mg PO HS [facility] Last Admin: 02/17/18 22:32 Dose: 15 mg Multivitamins/Minerals (Therapeutic-M Tab) 1 tab PO QPM [facility] Last Admin: 02/18/18 18:13 Dose: 1 tab Senna/Docusate Sodium (Senokot S 50 Mg-8.6 Mg) 1 tab PO BID [facility] Last Admin: 02/18/18 16:20 Dose: Not Given Sitagliptin Phosphate (Januvia) 25 mg PO DAILY [facility] Last Admin: 02/18/18 08:26 Dose: 25 mg Timolol Maleate (Timoptic 0.5% Ophth Soln) 1 drop OU Q12 [facility] Last Admin: 02/18/18 09:30 Dose: 1 drop Torsemide (Demadex) 100 mg PO DAILY [facility] Last Admin: 02/18/18 08:26 Dose: 100 mg Tramadol HCl (Ultram) 50 mg PO Q12 [facility] Last Admin: 02/18/18 08:34 Dose: 50 mg Physical Exam - Constitutional Appears: Confused, Cachectic, Chronically Ill - GI/Abdominal Exam GI & Abdominal Exam: Diminished Bowel Sounds, Normal Bowel Sounds - Exam Exam: NORMAL INSPECTION - Extremities Exam Extremities exam: Positive for: pedal pulses present. Negative for: calf tenderness, tenderness - Back Exam Back exam: absent: CVA tenderness (L), CVA tenderness (R), paraspinal tenderness - Neurological Exam Neurological exam: Altered Results - Vital Signs Recent Vital Signs: Last Vital Signs Temp 98.2 F 02/18/18 16:25 Pulse 91 H 02/18/18 18:15 Resp 18 02/18/18 16:25 BP 131/79 02/18/18 18:15 Pulse Ox 99 02/18/18 18:07 - Labs Result Diagrams: 02/18/18 06:30 02/18/18 06:30 Labs: Laboratory Results - last 24 hr 02/17/18 02/17/18 02/17/18 19:51 20:00 21:37 WBC RBC Hgb Hct MCV MCH MCHC RDW Plt Count pO2 51 VBG pH 7.43 VBG pCO2 47 VBG HCO3 29.2 VBG Total CO2 32.6 H VBG O2 Sat (Calc) 86.2 H VBG Base Excess 5.8 H VBG Potassium 3.5 L Sodium 143.0 Chloride 106.0 Glucose 137 H Lactate 1.4 FiO2 21.0 Potassium Carbon Dioxide Anion Gap BUN Creatinine Est GFR ( Amer) Est GFR (Non-Af Amer) POC Glucose (mg/dL) 131 H 111 H Random Glucose Hemoglobin A1c Calcium TSH 3rd Generation Venous Blood Potassium 3.5 L 02/18/18 02/18/18 02/18/18 06:06 06:30 06:30 WBC 14.0 H RBC 4.81 Hgb 13.4 Hct 41.5 MCV 86.3 MCH 27.8 MCHC 32.2 L RDW 19.1 H Plt Count 199 pO2 VBG pH VBG pCO2 VBG HCO3 VBG Total CO2 VBG O2 Sat (Calc) VBG Base Excess VBG Potassium Sodium 144 Chloride 105 Glucose Lactate FiO2 Potassium 3.5 L Carbon Dioxide 26 Anion Gap 17 BUN 21 H Creatinine 1.5 H Est GFR ( Amer) 40 Est GFR (Non-Af Amer) 33 POC Glucose (mg/dL) 123 H Random Glucose 132 H Hemoglobin A1c Calcium 9.5 TSH 3rd Generation 3.32 Venous Blood Potassium 02/18/18 02/18/18 02/18/18 06:30 11:08 16:11 WBC RBC Hgb Hct MCV MCH MCHC RDW Plt Count pO2 VBG pH VBG pCO2 VBG HCO3 VBG Total CO2 VBG O2 Sat (Calc) VBG Base Excess VBG Potassium Sodium Chloride Glucose Lactate FiO2 Potassium Carbon Dioxide Anion Gap BUN Creatinine Est GFR ( Amer) Est GFR (Non-Af Amer) POC Glucose (mg/dL) 115 H 116 H Random Glucose Hemoglobin A1c 5.7 Calcium TSH 3rd Generation Venous Blood Potassium Assessment & Plan (1) Altered mental status Status: Acute (2) Atelectasis Status: Acute (3) Nosocomial pneumonia Status: Acute (4) Acute renal failure (ARF) Status: Acute (5) Arthritis Status: Acute (6) CHF exacerbation Status: Acute (7) Chronic kidney disease, stage IV (severe) Status: Acute (8) Diabetes Status: Acute - Assessment and Plan (Free Text) Assessment: await cultures cont empiric IV rx
--- NOTE | 2018-02-18 15:25 | CP.PCM.PN ---
Subjective - Date & Time of Evaluation Date of Evaluation: 02/18/18 Time of Evaluation: 15:00 - Subjective Subjective: Patient seen and examined bedside. Lying in bed in NAD. Lethargic. Responds to verbal command , opens eyes and complains of leg pain . Hemodynamically stable, afebrile last 24 hours. No acute issues overnight. WBC 14 K BUN/Cr 21/1.5 Objective - Vital Signs/Intake and Output Vital Signs (last 24 hours): Temp Pulse Resp BP Pulse Ox 98.2 F 78 18 163/78 H 99 02/18/18 12:10 02/18/18 12:10 02/18/18 12:10 02/18/18 12:10 02/18/18 15:23 - Medications Medications: Current Medications Acetaminophen (Tylenol 325mg Tab) 650 mg PO Q4 PRN PRN Reason: Temp >100 Acetaminophen (Tylenol 325mg Tab) 650 mg PO Q4 PRN PRN Reason: Pain, Mild (1-3) Allopurinol (Zyloprim) 100 mg PO DAILY [facility] Last Admin: 02/18/18 08:23 Dose: 100 mg Artificial Tears (Artificial Tears) 1 drop OU BID [facility] Last Admin: 02/18/18 08:22 Dose: 1 drop Aspirin (Ecotrin) 81 mg PO DAILY [facility] Last Admin: 02/18/18 08:24 Dose: 81 mg Divalproex Sodium (Depakote Sprinkles) 125 mg PO TID [facility] Last Admin: 02/18/18 13:11 Dose: Not Given Dorzolamide HCl (Trusopt) 1 drop OU TID [facility] Last Admin: 02/18/18 13:11 Dose: 1 drop Famotidine (Pepcid) 20 mg PO HS [facility] Last Admin: 02/17/18 22:32 Dose: 20 mg Glipizide (Glucotrol) 10 mg PO BID [facility] Last Admin: 02/18/18 08:25 Dose: 10 mg Haloperidol (Haldol) 0.5 mg PO Q8 PRN PRN Reason: Agitation Hydralazine HCl (Apresoline) 50 mg PO Q8 [facility] Last Admin: 02/18/18 08:24 Dose: 50 mg Vancomycin HCl 1 gm/ Sodium (Chloride) 250 mls @ 166.667 mls/hr IVPB DAILY [facility] PRN Reason: Protocol Last Admin: 02/18/18 08:43 Dose: 166.667 mls/hr Piperacillin Sod/Tazobactam (Sod 2.25 gm/ Sodium Chloride) 100 mls @ 100 mls/ hr IVPB Q8 [facility] PRN Reason: Protocol Last Admin: 02/18/18 08:43 Dose: 100 mls/hr Insulin Human Lispro (Humalog) 0 units SC ACCU-CHECK [facility] PRN Reason: Protocol Last Admin: 02/18/18 11:59 Dose: Not Given Isosorbide Mononitrate (Imdur) 60 mg PO DAILY [facility] Last Admin: 02/18/18 08:25 Dose: 60 mg Lactulose (Enulose) 20 gm PO DAILY PRN PRN Reason: Constipation Latanoprost (Xalatan Opht) 1 drop OU HS [facility] Last Admin: 02/17/18 22:30 Dose: 1 drop Lidocaine HCl (Xylocaine 2%) 1 applic TOP QSHIFT [facility] Losartan Potassium (Cozaar) 100 mg PO DAILY [facility] Last Admin: 02/18/18 08:23 Dose: 100 mg Metoprolol Tartrate (Lopressor) 25 mg PO Q8 [facility] Last Admin: 02/18/18 08:23 Dose: 25 mg Mirtazapine (Remeron) 15 mg PO HS [facility] Last Admin: 02/17/18 22:32 Dose: 15 mg Multivitamins/Minerals (Therapeutic-M Tab) 1 tab PO QPM [facility] Last Admin: 02/17/18 18:15 Dose: Not Given Senna/Docusate Sodium (Senokot S 50 Mg-8.6 Mg) 1 tab PO BID [facility] Last Admin: 02/18/18 08:26 Dose: 1 tab Sitagliptin Phosphate (Januvia) 25 mg PO DAILY [facility] Last Admin: 02/18/18 08:26 Dose: 25 mg Timolol Maleate (Timoptic 0.5% Oph Soln) 1 drop OU Q12 [facility] Last Admin: 02/18/18 09:30 Dose: 1 drop Torsemide (Demadex) 100 mg PO DAILY [facility] Last Admin: 02/18/18 08:26 Dose: 100 mg Tramadol HCl (Ultram) 50 mg PO Q12 [facility] Last Admin: 02/18/18 08:34 Dose: 50 mg - Labs Labs: 02/18/18 06:30 02/18/18 06:30 - Constitutional Appears: Non-toxic, No Acute Distress, Other (lethargic) - Head Exam Head Exam: ATRAUMATIC, NORMOCEPHALIC - Eye Exam Eye Exam: EOMI, PERRL Pupil Exam: NORMAL ACCOMODATION - ENT Exam ENT Exam: Mucous Membranes Dry, Normal Exam - Neck Exam Neck Exam: Full ROM, Normal Inspection - Respiratory Exam Respiratory Exam: Clear to Ausculation Bilateral, NORMAL BREATHING PATTERN. absent: Rales, Rhonchi, Wheezes - Cardiovascular Exam Cardiovascular Exam: Tachycardia, REGULAR RHYTHM, RRR, +S1, +S2. absent: JVD - GI/Abdominal Exam GI & Abdominal Exam: Soft, Normal Bowel Sounds. absent: Distended, Guarding, Rebound - Rectal Exam Rectal Exam: Deferred - Extremities Exam Extremities Exam: Pedal Edema (1 +). absent: Calf Tenderness - Neurological Exam Additional comments: lethargic opens eyes to verbal command - Psychiatric Exam Psychiatric exam: Flat Affect - Skin Skin Exam: Dry, Warm Assessment and Plan - Assessment and Plan (Free Text) Assessment: 87 year old female with a past medical history of CKD? (although had normal renal function on 12/22/16), essential hypertension, type 2 DM, hypercholesterolemia, bilateral knee arthritis, gouty arthritis, spinal stenosis. diastolic CHF, CAD, gastrointestinal ulceration, presenting to the ED from [facility] due to worsening mental status and agitation. In the ED, the patient was acutely agitated and confused, trying to bite and hit medical staff, requiring 2 mg of Ativan IV before being sedated. She was initially going to be admitted to [facility], however she was found on labwork to have leukocytosis of 15.6 with neutrophilia. CXR showed Left basilar mild/moderate pleural effusion with possible infiltrate vs atelectasis. CT head was done which shows right sided otomastoiditis. She has bilateral pedal edema which is chronic as well. On telemetry the patient was found to be tachycardic with what appeared suspicious for atrial flutter.Patient was admitted to telemetry for further workup and management. She was strated on vanco and Zosyn IV. cardiology , psych consulted 1.Altered mental status metabolic encephalopathy secondary to infection ,superimposed on dementia Blood and urine cx sent.CXR shows suspicious infiltrate CT head showed right osteomastoiditis Continue Vanco and Zosyn IV Haldol PRN for agitation on 1 :1 for safety psych consulted Fall risk precautions 2. Suspected sepsis patient was febrile Tmax 101.2 , WBC elevated [address] head showing right osteomastoiditis Follow up urine and blood cx Continue IV vanco and Zosyn IV CXR showed atelectasis vs infiltrate -- suspicious for pneumonia 3. Sinus Tachycardia with MAT cardiology consult with Dr. Stinson appreciated Continue Lopressor 25 mg po q8h and titrate up if necessary Will start Lopressor IV since patient has poor PO intake 4.Mild diastolic CHF and pulmonary arterial hypertension hx with left sided mild to moderate pleural effusion on lopressor and Isosorbide mononitrate d/c Torsemide Cardiology consult appreciated 5. Type 2 DM poor Po intake Start 1/2 NS D5 appears well controlled based on previous HGA1C of 6.0 Lispro sliding scale 6. Uncontrolled HTN Start Lopressor IV since patient has poor Po intake Continue Cozaar 100 mg po daily and Lopressor d/c Torsemide 7.GERD, hx of esophageal ulcers Continue Pepcid 20 mg po HS 8. CKD stage III d/c Torsemide Started IVF stable when compared to prior admissions 9.Mild Anemia of chronic disease on epopoetin unclear etiology stable 10. Gout on Allopurinol 11.Dementia with behavioral problems worsened by infection on Remeron , Depakote psych consulted Recommended haldol and increase dose of Depakote geropsych admission if POA agrees with prior to d/c 12.Glaucoma eye drops 13.DVT prophylaxis SCDs
[2018-02-18] MEDS: Dextrose 5%/0.45% NS 1,000 ML IV SCH (15:56)
[2018-02-18] MEDS: Multivitamin With Minerals Tab PO SCH (18:13)
[2018-02-18] MEDS: Latanoprost 0.005% Opht SOUTION OU SCH (21:07)
[2018-02-18] MEDS: Metoprolol 1 mg/ml Inj IVP SCH (21:09)
--- NOTE | 2018-02-18 23:35 | CON ---
DATE: 02/18/2018 REASON FOR CONSULTATION: Otitis media. HISTORY OF PRESENT ILLNESS: This is an 87-year-old female who was noted to have fluid in the middle ear space on CAT scan on the right side and the mastoid; there is no mastoid or bony destruction and no ear pain. The patient does not complain of any hearing loss, ear pain, or ear discharge. PAST MEDICAL HISTORY: As noted in the chart by me. MEDICATIONS: As noted in the chart by me. PHYSICAL EXAMINATION: HEENT: Head; atraumatic and normocephalic. FACE: Good facial movements bilaterally. CONSTITUTIONAL: Well-fed, well-nourished. COMMUNICATION: Communicates well and appropriately. EXTERNAL NOSE AND EARS: No masses. No lesions. No erythema. No edema. INTERNAL NOSE: Deviated septum. No masses. No lesions. No erythema. No edema. EARS: TMs intact with fluid behind the right TM. ORAL CAVITY AND OROPHARYNX: No masses. No lesions. No erythema. No edema. LIPS AND GUMS: No masses. No lesions. No erythema. No edema. NECK: Supple. THYROID: No thyromegaly. No goiter. LYMPH NODES: No lymphadenopathy of the neck. LABORATORY DATA: CAT scan was reviewed by me revealed fluid behind the TM. ASSESSMENT: 1. Otitis media. 2. Deviated septum. PLAN: Continue antibiotics and followup as an outpatient. Bin Pardo MD
[2018-02-19] MEDS: Metoprolol 1 mg/ml Inj IVP SCH ×4 (04:44→22:00)
[2018-02-19] MEDS: Dextrose 5%/0.45% NS 1,000 ML IV SCH (04:45)
--- NOTE | 2018-02-19 05:33 | CON ---
DATE: CARDIOLOGY CONSULTATION REASON FOR CONSULTATION: Tachycardia. HISTORY OF PRESENT ILLNESS: The patient is an 87-year-old female who was transferred from the assisted because of altered mental status and agitation as well as tachycardia. The patient has a history of insufficiency, hypertension, anxiety, depression, congestive heart failure, COPD, and behavioral problems who was reported to be agitated. In emergency room, the patient was reported to be in atrial flutter; however, close analysis of the rhythm strips and EKG were consistent with sinus tachycardia with frequent APCs. The patient is still tachycardic on the monitor. The patient does not given any reliable history or answers to my questions. MEDICATIONS: Hydralazine 50 mg p.o. every 8 hours, Cozaar 100 mg once a day, Demadex 100 mg once a day, Depakote 125 mg daily, aspirin 81 mg once a day, lactulose 20 mg once a day, glipizide 10 mg p.o. twice a day, Haldol 0.5 mg p.o. every 8 hours p.r.n. for agitation, Imdur 60 mg once a day, Januvia 25 mg once a day, Lopressor 25 mg every 8 hours, Zosyn 2.25 g intravenously every 8 hours, Remeron 15 mg p.o. at bedtime, multivitamin 1 tablet once a day, vancomycin 1 g intravenously daily, and Zyloprim 100 mg daily. REVIEW OF SYSTEMS: No reported fever or chills. No reported vomiting or diarrhea. No reported ventricular tachycardia. PHYSICAL EXAMINATION: GENERAL: The patient is an elderly female who does not appear to be in acute distress. VITAL SIGNS: Blood pressure 163/78, heart rate 78, temperature 98.2, and respirations 18. HEENT: Normocephalic. NECK: No JVD. CHEST: Clear. HEART: S1 and S2, regular. ABDOMEN: Soft. EXTREMITIES: Trace leg edema. LABORATORY DATA: Chest x-ray revealed borderline cardiomegaly, clear lungs, the left costophrenic angle could not be evaluated. Head CT scan without contrast, no evidence of acute intracranial hemorrhage, mass effect or midline shaft. Hemoglobin and hematocrit are 13.1 and 41.5, white count 14, and platelet count 199,000. SMA-7; sodium 144, potassium 3.5, chloride 105, CO2 26, glucose 132, BUN 21, and creatinine 1.5. Urine drug screen is negative. Alcohol level is below 10. EKG revealed sinus tachycardia with frequent APCs, multifocal tachycardia cannot be complete excluded. ASSESSMENT: 1. Sinus tachycardia with frequent atrial premature complexes versus multifocal atrial tachycardia. 2. Altered mental status. 3. Rule out underlying sepsis. 4. Hypokalemia. 5. Chronic renal insufficiency. RECOMMENDATIONS: Continue aspirin 81 mg once a day and continue Demadex. Continue Cozaar 100 mg once a day, Lopressor 25 mg every 8 hours, IV Zosyn 2.25 g every 8 hours, and IV vancomycin at 1 g daily. Obtain 2 sets of blood cultures as well as urine culture. Obtain an echocardiogram. The most recent echo was in 2013, which revealed normal ejection fraction, with mild mitral insufficiency and [id number] tricuspid insufficiency. Sherman Stinson MD
[2018-02-19 06:23] LABS: HEMOGLOBIN 11.7 g/dL (12.0-16.0); MEAN CELL VOLUME 86.8 fl (81.0-99.0); MEAN CORPUSCULAR HEMOGLOBIN 27.5 pg (27.0-31.0); MEAN CORPUSCULAR HGB CONC 31.7 g/dL (33.0-37.0); RBC 4.25 Mil/uL (3.80-5.20); RED CELL DISTRIBUTION WIDTH 19.3 % (11.5-14.5); WHITE BLOOD COUNT 11.7 K/uL (4.8-10.8)
[2018-02-19 06:36] LABS: CALCIUM 8.8 mg/dL (8.4-10.2)
[2018-02-19] MEDS: Docusate-Senna 50 mg-8.6 mg Tab PO SCH ×2 (08:06→16:35)
[2018-02-19] MEDS: Divalproex 125 mg Sprinkle Capsule PO SCH ×3 (08:07→16:49)
[2018-02-19] MEDS: Insulin Lispro (humaLOG) 100 Units/ml Inj SC SCH ×4 (08:11→23:00)
[2018-02-19] MEDS: Artificial Tears Opht Soln OU SCH ×2 (08:11→16:59)
[2018-02-19] MEDS: Dorzolamide 2% Ophth Soln OU SCH ×3 (08:14→16:34)
[2018-02-19] MEDS ORDERED: Potassium Chloride 20 mEq 100 ML IVPB ONE (09:20)
--- NOTE | 2018-02-19 09:44 | CP.PCM.PN ---
Subjective - Date & Time of Evaluation Date of Evaluation: 02/19/18 Time of Evaluation: 10:30 - Subjective Subjective: Patient seen and examined bedside. Elderly female lying in bed in NAD, lethargic , sleeping most of the time. Appears a little more responsive today to verbal command. Denies any pain . Slightly better PO intake today. Hemodynamically stable afebrile. No acute issues overnight. WBC 11 K Objective - Vital Signs/Intake and Output Vital Signs (last 24 hours): Temp Pulse Resp BP Pulse Ox 97.6 F 65 18 110/55 L 100 02/19/18 07:37 02/19/18 08:11 02/19/18 07:37 02/19/18 08:11 02/19/18 07:37 - Medications Medications: Current Medications Acetaminophen (Tylenol 325mg Tab) 650 mg PO Q4 PRN PRN Reason: Temp >100 Acetaminophen (Tylenol 325mg Tab) 650 mg PO Q4 PRN PRN Reason: Pain, Mild (1-3) Last Admin: 02/19/18 01:13 Dose: 650 mg Allopurinol (Zyloprim) 100 mg PO DAILY [facility] Last Admin: 02/18/18 08:23 Dose: 100 mg Artificial Tears (Artificial Tears) 1 drop OU BID [facility] Last Admin: 02/19/18 08:11 Dose: 1 drop Aspirin (Ecotrin) 81 mg PO DAILY [facility] Last Admin: 02/19/18 08:07 Dose: 81 mg Divalproex Sodium (Depakote Sprinkles) 125 mg PO TID [facility] Last Admin: 02/19/18 08:07 Dose: 125 mg Dorzolamide HCl (Trusopt) 1 drop OU TID [facility] Last Admin: 02/19/18 08:14 Dose: 1 drop Famotidine (Pepcid) 20 mg PO HS [facility] Last Admin: 02/18/18 22:30 Dose: 20 mg Glipizide (Glucotrol) 10 mg PO BID [facility] Last Admin: 02/18/18 18:12 Dose: Not Given Haloperidol (Haldol) 0.5 mg PO Q8 PRN PRN Reason: Agitation Last Admin: 02/19/18 01:08 Dose: 0.5 mg Hydralazine HCl (Apresoline) 50 mg PO Q8 [facility] Last Admin: 02/19/18 08:09 Dose: 50 mg Vancomycin HCl 1 gm/ Sodium (Chloride) 250 mls @ 166.667 mls/hr IVPB DAILY [facility] PRN Reason: Protocol Last Admin: 02/19/18 08:38 Dose: 166.667 mls/hr Piperacillin Sod/Tazobactam (Sod 2.25 gm/ Sodium Chloride) 100 mls @ 100 mls/ hr IVPB Q8 [facility] PRN Reason: Protocol Last Admin: 02/19/18 08:04 Dose: 100 mls/hr Dextrose/Sodium Chloride (Dextrose 5%/0.45% Ns 1000 Ml) 1,000 mls @ 80 mls/hr IV .[id number] REPLACED BY [facility] Stop: 02/19/18 15:32 Last Admin: 02/19/18 04:45 Dose: 80 mls/hr Potassium Chloride (Potassium Chloride 20 Meq/100 Ml) 100 mls @ 50 mls/hr IVPB ONCE ONE Stop: 02/19/18 11:19 Insulin Human Lispro (Humalog) 0 units SC ACCU-CHECK [facility]PL[facility]ED BY [facility] PRN Reason: Protocol Last Admin: 02/19/18 08:11 Dose: 2 units Isosorbide Mononitrate (Imdur) 60 mg PO DAILY [facility] Last Admin: 02/19/18 08:08 Dose: 60 mg Lactulose (Enulose) 20 gm PO DAILY PRN PRN Reason: Constipation Latanoprost (Xalatan Opht) 1 drop OU HS [facility] Last Admin: 02/18/18 21:07 Dose: 1 drop Lidocaine HCl (Xylocaine 2%) 1 applic TOP QSHIFT [facility] Losartan Potassium (Cozaar) 100 mg PO DAILY [facility] Last Admin: 02/19/18 08:11 Dose: 100 mg Metoprolol Tartrate (Lopressor) 25 mg PO Q8 [facility] Last Admin: 02/19/18 08:06 Dose: 25 mg Metoprolol Tartrate (Lopressor) 2.5 mg IVP Q6 [facility] Last Admin: 02/19/18 04:44 Dose: 2.5 mg Mirtazapine (Remeron) 15 mg PO HS [facility] Last Admin: 02/18/18 22:30 Dose: 15 mg Multivitamins/Minerals (Therapeutic-M Tab) 1 tab PO QPM [facility] Last Admin: 02/18/18 18:13 Dose: 1 tab Senna/Docusate Sodium (Senokot S 50 Mg-8.6 Mg) 1 tab PO BID [facility] Last Admin: 02/19/18 08:06 Dose: 1 tab Sitagliptin Phosphate (Januvia) 25 mg PO DAILY [facility] Last Admin: 02/19/18 08:09 Dose: 25 mg Timolol Maleate (Timoptic 0.5% Ophth Soln) 1 drop OU Q12 [facility]PL[facility] Last Admin: 02/19/18 08:13 Dose: 1 drop Torsemide (Demadex) 100 mg PO DAILY [facility] Last Admin: 02/19/18 08:07 Dose: 100 mg Tramadol HCl (Ultram) 50 mg PO Q12 [facility]PL[facility] Last Admin: 02/19/18 08:18 Dose: 50 mg - Labs Labs: 02/19/18 06:00 02/19/18 06:00 - Constitutional Appears: No Acute Distress, Other (lethargic) - Head Exam Head Exam: ATRAUMATIC, NORMOCEPHALIC - Eye Exam Additional comments: glaucoma - ENT Exam ENT Exam: Mucous Membranes Moist, Normal Exam - Neck Exam Neck Exam: Full ROM, Normal Inspection - Respiratory Exam Respiratory Exam: Clear to Ausculation Bilateral, NORMAL BREATHING PATTERN. absent: Rales, Rhonchi, Wheezes - Cardiovascular Exam Cardiovascular Exam: REGULAR RHYTHM, RRR, +S1, +S2. absent: JVD - GI/Abdominal Exam GI & Abdominal Exam: Soft, Normal Bowel Sounds. absent: Distended, Guarding, Tenderness, Rebound - Rectal Exam Rectal Exam: Deferred - Extremities Exam Extremities Exam: Full ROM, Normal Capillary Refill, Normal Inspection, Pedal Edema (1+ bilaterally ) - Back Exam Back Exam: NORMAL INSPECTION - Neurological Exam Neurological Exam: Alert, Awake, CN II-XII Intact, Oriented x3 - Skin Skin Exam: Dry, Intact, Normal Color, Warm Assessment and Plan - Assessment and Plan (Free Text) Assessment: 87 year old female with a past medical history of CKD stage III ,essential hypertension, type 2 DM, hypercholesterolemia, bilateral knee arthritis, gouty arthritis, spinal stenosis,diastolic CHF, CAD, gastrointestinal ulceration, presented to the ED from [facility] due to worsening mental status and agitation. In the ED, the patient was acutely agitated and confused, trying to bite and hit medical staff, requiring 2 mg of Ativan IV before being sedated. She was initially going to be admitted to [facility], however she was found on labwork to have leukocytosis of 15.6 with neutrophilia. CXR showed Left basilar mild/moderate pleural effusion with possible infiltrate vs atelectasis. CT head was done which shows right sided otomastoiditis. She has bilateral pedal edema which is chronic as well. On telemetry the patient was found to be tachycardic with what appeared suspicious for atrial flutter.Patient was admitted to telemetry for further workup and management. She was started on vanco and Zosyn IV. Cardiology , psych and ENt consulted. At present hemodynamically stable, afebrile, appears more awake today but still lethargic.WBC 11 K 1.Altered mental status metabolic encephalopathy secondary to infection ,superimposed on dementia Blood cx with no growth F/u urine cx CXR showed suspicious infiltrate CT head showed right osteomastoiditis Continue Vanco and Zosyn IV Haldol PRN for agitation on avasyst psych consulted and recommended psych admission if medically cleared . Fall risk precautions 2. Suspected sepsis patient was febrile Tmax 101.2 , WBC elevated [address] head showing right osteomastoiditis Blood cx with no growth Continue IV vanco and Zosyn IV CXR showed atelectasis vs infiltrate -- suspicious for pneumonia( less likely since patient has no upper respiratory symptoms) 3. Sinus Tachycardia with MAT cardiology consult with Dr. Stinson appreciated Continue Lopressor 25 mg po q8h and titrate up if necessary Will start Lopressor IV PRN since patient has poor PO intake 4.Mild diastolic CHF and pulmonary arterial hypertension hx with left sided mild to moderate pleural effusion on lopressor and Isosorbide mononitrate d/c Torsemide Cardiology consult appreciated 5. Type 2 DM poor PO intake on / NS D5 appears well controlled based on previous HGA1C of 6.0 Lispro sliding scale Glucotrol on hold 6. Uncontrolled HTN Started Lopressor IV PRN since patient has poor Po intake Continue Cozaar 100 mg po daily and Lopressor d/c Torsemide 7.GERD, hx of esophageal ulcers Continue Pepcid 20 mg po HS 8. CKD stage III d/c Torsemide stable Continue IVF stable when compared to prior admissions 9.Mild Anemia of chronic disease on epopoetin unclear etiology stable 10. Gout on Allopurinol 11.Dementia with behavioral problems worsened by infection on Remeron , Depakote psych consulted Recommended haldol and increased dose of Depakote geropsych admission if POA agrees with prior to d/c 12.Glaucoma eye drops 13.DVT prophylaxis SCDs
--- NOTE | 2018-02-19 12:28 | CP.PCM.PN ---
Subjective - Date & Time of Evaluation Date of Evaluation: 02/19/18 Time of Evaluation: 07:00 - Subjective Subjective: weak bedridden and lethargic but more responsive today NAD Objective - Vital Signs/Intake and Output Vital Signs (last 24 hours): Temp Pulse Resp BP Pulse Ox 97.7 F 72 18 121/71 99 02/19/18 12:19 02/19/18 12:19 02/19/18 12:19 02/19/18 12:19 02/19/18 12:19 - Medications Medications: Current Medications Acetaminophen (Tylenol 325mg Tab) 650 mg PO Q4 PRN PRN Reason: Temp >100 Acetaminophen (Tylenol 325mg Tab) 650 mg PO Q4 PRN PRN Reason: Pain, Mild (1-3) Last Admin: 02/19/18 01:13 Dose: 650 mg Allopurinol (Zyloprim) 100 mg PO DAILY [facility] Last Admin: 02/19/18 12:10 Dose: 100 mg Artificial Tears (Artificial Tears) 1 drop OU BID [facility] Last Admin: 02/19/18 08:11 Dose: 1 drop Aspirin (Ecotrin) 81 mg PO DAILY [facility] Last Admin: 02/19/18 08:07 Dose: 81 mg Divalproex Sodium (Depakote Sprinkles) 125 mg PO TID [facility] Last Admin: 02/19/18 12:14 Dose: 125 mg Dorzolamide HCl (Trusopt) 1 drop OU TID [facility] Last Admin: 02/19/18 12:14 Dose: 1 drop Famotidine (Pepcid) 20 mg PO HS [facility] Last Admin: 02/18/18 22:30 Dose: 20 mg Glipizide (Glucotrol) 10 mg PO BID [facility] Last Admin: 02/18/18 18:12 Dose: Not Given Haloperidol (Haldol) 0.5 mg PO Q8 PRN PRN Reason: Agitation Last Admin: 02/19/18 01:08 Dose: 0.5 mg Hydralazine HCl (Apresoline) 50 mg PO Q8 [facility] Last Admin: 02/19/18 08:09 Dose: 50 mg Vancomycin HCl 1 gm/ Sodium (Chloride) 250 mls @ 166.667 mls/hr IVPB DAILY [facility] PRN Reason: Protocol Last Admin: 02/19/18 08:38 Dose: 166.667 mls/hr Piperacillin Sod/Tazobactam (Sod 2.25 gm/ Sodium Chloride) 100 mls @ 100 mls/ hr IVPB Q8 [facility] PRN Reason: Protocol Last Admin: 02/19/18 08:04 Dose: 100 mls/hr Dextrose/Sodium Chloride (Dextrose 5%/0.45% Ns 1000 Ml) 1,000 mls @ 80 mls/hr IV .[id number] [facility] Stop: 02/19/18 15:32 Last Admin: 02/19/18 04:45 Dose: 80 mls/hr Insulin Human Lispro (Humalog) 0 units SC ACCU-CHECK [facility] PRN Reason: Protocol Last Admin: 02/19/18 12:11 Dose: 2 units Isosorbide Mononitrate (Imdur) 60 mg PO DAILY [facility] Last Admin: 02/19/18 08:08 Dose: 60 mg Lactulose (Enulose) 20 gm PO DAILY PRN PRN Reason: Constipation Latanoprost (Xalatan Opht) 1 drop OU HS [facility] Last Admin: 02/18/18 21:07 Dose: 1 drop Lidocaine HCl (Xylocaine 2%) 1 applic TOP QSHIFT [facility] Losartan Potassium (Cozaar) 100 mg PO DAILY [facility] Last Admin: 02/19/18 08:11 Dose: 100 mg Metoprolol Tartrate (Lopressor) 25 mg PO Q8 [facility] Last Admin: 02/19/18 08:06 Dose: 25 mg Metoprolol Tartrate (Lopressor) 2.5 mg IVP Q6 [facility] Last Admin: 02/19/18 10:03 Dose: Not Given Mirtazapine (Remeron) 15 mg PO HS [facility] Last Admin: 02/18/18 22:30 Dose: 15 mg Multivitamins/Minerals (Therapeutic-M Tab) 1 tab PO QPM [facility] Last Admin: 02/18/18 18:13 Dose: 1 tab Senna/Docusate Sodium (Senokot S 50 Mg-8.6 Mg) 1 tab PO BID [facility] Last Admin: 02/19/18 08:06 Dose: 1 tab Sitagliptin Phosphate (Januvia) 25 mg PO DAILY [facility] Last Admin: 02/19/18 08:09 Dose: 25 mg Timolol Maleate (Timoptic 0.5% Ophth Soln) 1 drop OU Q12 [facility] Last Admin: 02/19/18 08:13 Dose: 1 drop Torsemide (Demadex) 100 mg PO DAILY [facility] Last Admin: 02/19/18 08:07 Dose: 100 mg Tramadol HCl (Ultram) 50 mg PO Q12 [facility] Last Admin: 02/19/18 08:18 Dose: 50 mg - Labs Labs: 02/19/18 06:00 02/19/18 06:00 - Constitutional Appears: Non-toxic, Chronically Ill - Head Exam Head Exam: NORMOCEPHALIC - Eye Exam Eye Exam: PERRL - ENT Exam ENT Exam: Mucous Membranes Dry - Neck Exam Neck Exam: absent: Lymphadenopathy - Respiratory Exam Respiratory Exam: Decreased Breath Sounds - Cardiovascular Exam Cardiovascular Exam: REGULAR RHYTHM - GI/Abdominal Exam GI & Abdominal Exam: Distended, Soft - Rectal Exam Rectal Exam: Deferred - Exam Exam: NORMAL INSPECTION - Extremities Exam Extremities Exam: absent: Pedal Edema - Back Exam Back Exam: absent: CVA tenderness (L), CVA tenderness (R) - Neurological Exam Neurological Exam: Altered Neuro motor strength exam: Left Upper Extremity: 2/1, Right Upper Extremity: 2/1 , Left Lower Extremity: 2/1, Right Lower Extremity: 2/1 - Psychiatric Exam Psychiatric exam: Depressed Assessment and Plan (1) Altered mental status Status: Acute (2) Atelectasis Status: Acute (3) Nosocomial pneumonia Status: Acute (4) Acute renal failure (ARF) Status: Acute (5) Arthritis Status: Acute (6) CHF exacerbation Status: Acute (7) Chronic kidney disease, stage IV (severe) Status: Acute (8) Diabetes Status: Acute - Assessment and Plan (Free Text) Assessment: cont iv rx await cultures
--- NOTE | 2018-02-19 15:01 | PQF GENQUE ---
Dr. Cheng, It is unclear whether the following diagnosis or diagnoses below were present on admission. DX.: Suspected sepsis This diagnosis was POA 02/18 and 02/19 Attending (Hospitalist): progress note: Suspected sepsis patient was febrile Tmax 101.2 , WBC elevated [address] head showing right osteomastoiditis Blood cx with no growth Continue IV vanco and Zosyn IV CXR showed atelectasis vs infiltrate -- suspicious for pneumonia( less likely since patient has no upper respiratory symptoms) This form is a permanent part of the medical record Clarification of your documentation is requested to better reflect the severity of illness and intensity of treatment of your patient. Indicators present [] Specify: [] [] Specify: [] [] Specify: [] [] Specify: [] Location in the medical record that reflects the above clinical findings: [] Treatment Provided: [] PHYSICIAN'S RESPONSE Based on your medical judgment of the clinical indicators outlined above please clarify the following: [] Practitioner response [] If unable to determine, please check the box, sign and date. Present On Admission (POA) Indicator: [] Present at the time of admission [] Not present at the time of admission [] Clinically Undetermined In responding to this query, please exercise your independent professional judgment. The fact that a question is asked does not imply that any particular answer is desired or expected. Thank you for your clarification on this documentation. If you have any questions please call. * Thank you, Disha Francisco RN ext. #[phone] MTDD
--- NOTE | 2018-02-19 16:20 | PN ---
DATE: 02/19/2018 SUBJECTIVE: The patient is confused. She is currently in sinus rhythm on the monitor with occasional APCs. No reported atrial flutter or atrial fibrillation. PHYSICAL EXAMINATION: VITAL SIGNS: Blood pressure 121/71, heart rate 72, temperature 97.7, and respirations 18. HEENT: Normocephalic. CHEST: Clear. HEART: S1 and S2 regular. EXTREMITIES: Trace leg edema. LABORATORY DATA: SMA-7; sodium 145, potassium 3.4, chloride 104, CO2 30, glucose 193, BUN 23, and creatinine 1.6. Today's hemoglobin and hematocrit are 11.7 and 36.8, white count has improved to 11.7, and platelet count 193,000. Blood culture is negative after 24 hours. ASSESSMENT: 1. Sinus tachycardia with frequent atrial premature complexes versus multifocal atrial tachycardia. 2. Altered mental status. 3. Rule out underlying sepsis. 4. Chronic renal insufficiency. 5. Hypokalemia. RECOMMENDATIONS: Continue current hydralazine 50 mg every 8 hours. Continue Cozaar at 100 mg once a day, aspirin 81 mg once a day, and Lopressor mg intravenously every 6 hours p.r.n. Continue current Demadex, which was started today. Continue IV vancomycin at 1 g daily. The patient did receive 20 mEq of IV potassium replacement today. Start K-Dur 20 mEq orally once a day. Followup in a.m. I will review the echocardiography study that was performed today. Sherman Stinson MD
[2018-02-19] MEDS: Multivitamin With Minerals Tab PO SCH (16:59)
--- NOTE | 2018-02-19 21:13 | CARD ---
APPROVED REPORT EXAM: Two-dimensional and M-mode echocardiogram with Doppler and color Doppler. Other Information Quality : GoodRhythm : NSR INDICATION LV Function:SystolicDiastolic 2D DIMENSIONS IVSd1.65 (0.7-1.1cm)LVDd2.89 (3.9-5.9cm) LVOT Diameter1.68 (1.8-2.4cm)PWd1.96 (0.7-1.1cm) IVSs1.83 (0.8-1.2cm)LVDs2.08 (2.5-4.0cm) FS (%) 28.0 %PWs1.83 (0.8-1.2cm) M-Mode DIMENSIONS Left Atrium (MM)4.37 (2.5-4.0cm)IVSd1.06 (0.7-1.1cm) Aortic Root2.61 (2.2-3.7cm)LVDd3.74 (4.0-5.6cm) Aortic Cusp Exc.1.75 (1.5-2.0cm)PWd1.13 (0.7-1.1cm) IVSs1.42 cmFS (%) 20 % LVDs2.98 (2.0-3.8cm)PWs1.62 cm Mitral Valve MV E Etuqjwgi66.2cm/sMV DECEL [id number] A Jdkzxkot55.6cm/s MV XAP13esL/A ratio1.1MVA (PHT)3.90cm2 TDI Lateral E' Peak V6.60cm/sMedial E' Peak V6.03cm/sE/Lateral E'10.3 E/Medial E'11.3 Pulmonary Valve PV Peak Qsfrtsyo01.7cm/s Tricuspid Valve TR Peak Cyttaiji497ym/sRAP HCGATNPO89sdRbYO Peak Gr.56mmHg [id number] LEFT VENTRICLE The left ventricle is normal in size. There is mild concentric left ventricular hypertrophy. The left ventricular function is normal. The left ventricular ejection fraction is - 55%. low normal Transmitral Doppler flow pattern is Grade I-abnormal relaxation pattern. No left ventricle thrombus noted on this study. There is no ventricular septal defect visualized. There is no left ventricular aneurysm. There is no mass noted in the left ventricle. RIGHT VENTRICLE The right ventricle appears - moderately dilated on some 2D views. There is normal right ventricular wall thickness. The right ventricular systolic function is normal. ATRIA The left atrium is mildly dilated. There is no thrombus suspected in the left atrium. The right atrium appears - moderately dilated on some 2D views. The interatrial septum is intact with no evidence for an atrial septal defect. AORTIC VALVE The aortic valve is normal in structure. No aortic regurgitation is present. There is no aortic valvular stenosis. MITRAL VALVE The mitral valve is normal in structure. There is no evidence of mitral valve prolapse. There is no mitral valve stenosis. Mitral regurgitation is trace. TRICUSPID VALVE The tricuspid valve is normal in structure. There is moderate tricuspid regurgitation. Right ventricular systolic pressure is estimated at 65 mmHg. There is no tricuspid valve prolapse or vegetation. There is no tricuspid valve stenosis. PULMONIC VALVE The pulmonary valve is normal in structure. There is no pulmonic valvular regurgitation. GREAT VESSELS The aortic root is normal in size. The IVC is normal in size and collapses >50% with inspiration. PERICARDIAL EFFUSION The pericardium appears normal. There is an - moderate sized pleural effusion. <Conclusion> The study is of fair quality. The left ventricle is normal in size. There is mild concentric left ventricular hypertrophy. The left ventricular function is normal. The left ventricular ejection fraction is - 55%. The left atrium is mildly dilated. The right ventricle and right atrium appear - moderately dilated on some 2D views. The mitral, aortic and tricuspid valves are normal. There is trace mitral ergurgitation and moderate tricuspid regurgitation.
[2018-02-19] MEDS: Latanoprost 0.005% Opht SOUTION OU SCH (21:20)
[2018-02-20] MEDS: Metoprolol 1 mg/ml Inj IVP SCH ×2 (04:00→10:12)
[2018-02-20] MEDS: Insulin Lispro (humaLOG) 100 Units/ml Inj SC SCH ×2 (06:38→12:36)
[2018-02-20 08:08] LABS: HEMOGLOBIN 12.3 g/dL (12.0-16.0); MEAN CELL VOLUME 87.1 fl (81.0-99.0); MEAN CORPUSCULAR HEMOGLOBIN 28.1 pg (27.0-31.0); MEAN CORPUSCULAR HGB CONC 32.3 g/dL (33.0-37.0); RBC 4.39 Mil/uL (3.80-5.20); RED CELL DISTRIBUTION WIDTH 19.2 % (11.5-14.5); WHITE BLOOD COUNT 13.1 K/uL (4.8-10.8)
[2018-02-20 08:36] VITALS: RESP 20
[2018-02-20] MEDS: Artificial Tears Opht Soln OU SCH (08:44)
[2018-02-20] MEDS: Dorzolamide 2% Ophth Soln OU SCH (08:45)
[2018-02-20] MEDS: Divalproex 125 mg Sprinkle Capsule PO SCH ×2 (08:45→12:28)
[2018-02-20] MEDS: Docusate-Senna 50 mg-8.6 mg Tab PO SCH (08:46)
[2018-02-20] MEDS ORDERED: Potassium Chloride 20 mEq ER Tab PO SCH (09:00)
[2018-02-20 09:26] LABS: ALB/GLOB RATIO 0.8 (1.0-2.1); ALBUMIN 2.9 g/dL (3.5-5.0); CALCIUM 8.9 mg/dL (8.4-10.2)
--- NOTE | 2018-02-20 11:56 | CP.PCM.DIS ---
Provider - Provider Date of Admission: 02/17/18 17:00 Attending physician: Ronal Quintero DO Primary care physician: Dr. Carroll Consults: ID consult cardiology consult psychiatry consult Time Spent in preparation of Discharge (in minutes): 15 Hospital Course - Lab Results Lab Results: Micro Results 02/17/18 17:22 Blood Blood Culture - Preliminary NO GROWTH AFTER 48 HOURS Most Recent Lab Values WBC 13.1 K/uL (4.8-10.8) H 02/20/18 06:30 RBC 4.39 Mil/uL (3.80-5.20) 02/20/18 06:30 Hgb 12.3 g/dL (12.0-16.0) 02/20/18 06:30 Hct 38.2 % (34.0-47.0) 02/20/18 06:30 MCV 87.1 fl (81.0-99.0) 02/20/18 06:30 MCH 28.1 pg (27.0-31.0) 02/20/18 06:30 MCHC 32.3 g/dL (33.0-37.0) L 02/20/18 06:30 RDW 19.2 % (11.5-14.5) H 02/20/18 06:30 Plt Count 203 K/uL (130-400) 02/20/18 06:30 MPV 9.3 fl (7.2-11.7) 02/17/18 14:20 Neut % (Auto) 89.6 % (50.0-75.0) H 02/17/18 14:20 Lymph % (Auto) 3.1 % (20.0-40.0) L 02/17/18 14:20 [place] % (Auto) 6.8 % (0.0-10.0) 02/17/18 14:20 Eos % (Auto) 0.1 % (0.0-4.0) 02/17/18 14:20 Baso % (Auto) 0.4 % (0.0-2.0) 02/17/18 14:20 Neut # (Auto) 14.0 K/uL (1.8-7.0) H 02/17/18 14:20 Lymph # (Auto) 0.5 K/uL (1.0-4.3) L 02/17/18 14:20 [place] # (Auto) 1.1 K/uL (0.0-0.8) H 02/17/18 14:20 Eos # (Auto) 0.0 K/uL (0.0-0.7) 02/17/18 14:20 Baso # (Auto) 0.1 K/uL (0.0-0.2) 02/17/18 14:20 Neutrophils % (Manual) 87 % (42-75) H 02/17/18 14:20 Lymphocytes % (Manual) 6 % (20-50) L 02/17/18 14:20 Monocytes % (Manual) 7 % (0-10) 02/17/18 14:20 Platelet Estimate Normal (NORMAL) 02/17/18 14:20 Anisocytosis (manual) Slight 02/17/18 14:20 pO2 51 mm/Hg (30-55) 02/17/18 20:00 VBG pH 7.43 (7.32-7.43) 02/17/18 20:00 VBG pCO2 47 mmHg (40-60) 02/17/18 20:00 VBG HCO3 29.2 mmol/L 02/17/18 20:00 VBG Total CO2 32.6 mmol/L (22-28) H 02/17/18 20:00 VBG O2 Sat (Calc) 86.2 % (40-65) H 02/17/18 20:00 VBG Base Excess 5.8 mmol/L (0.0-2.0) H 02/17/18 20:00 VBG Potassium 3.5 mmol/L (3.6-5.2) L 02/17/18 20:00 Sodium 143.0 mmol/L (132-148) 02/17/18 20:00 Chloride 106.0 mmol/L (98-107) 02/17/18 20:00 Glucose 137 mg/dL (65-105) H 02/17/18 20:00 Lactate 1.4 mmol/L (0.7-2.1) 02/17/18 20:00 FiO2 21.0 % 02/17/18 20:00 Sodium 143 mmol/l (132-148) 02/20/18 06:30 Potassium 3.8 MMOL/L (3.6-5.0) 04/28/18 06:30 Chloride 102 mmol/L (98-107) 02/20/18 06:30 Carbon Dioxide 28 mmol/L (22-30) 02/20/18 06:30 Anion Gap 17 (10-20) 02/20/18 06:30 BUN 28 mg/dl (7-17) H 02/20/18 06:30 Creatinine 1.7 mg/dl (0.7-1.2) H 02/20/18 06:30 Est GFR ( Amer) 34 02/20/18 06:30 Est GFR (Non-Af Amer) 28 02/20/18 06:30 POC Glucose (mg/dL) 122 mg/dL (65-110) H 02/20/18 05:14 Random Glucose 98 mg/dL (65-105) 02/20/18 06:30 Hemoglobin A1c 5.7 % (4.2-6.5) 02/18/18 06:30 Calcium 8.9 mg/dL (8.4-10.2) 02/20/18 06:30 Total Bilirubin 0.5 mg/dl (0.2-1.3) 02/20/18 06:30 AST 26 U/L (14-36) 02/20/18 06:30 ALT 23 U/L (9-52) 02/20/18 06:30 Alkaline Phosphatase 57 U/L (38-126) 02/20/18 06:30 Total Protein 6.4 G/DL (6.3-8.2) 02/20/18 06:30 Albumin 2.9 g/dL (3.5-5.0) L 02/20/18 06:30 Globulin 3.6 gm/dL (2.2-3.9) 02/20/18 06:30 Albumin/Globulin Ratio 0.8 (1.0-2.1) L 02/20/18 06:30 TSH 3rd Generation 3.32 mIU/ML (0.46-4.68) 02/18/18 06:30 Venous Blood Potassium 3.5 mmol/L (3.6-5.2) L 02/17/18 20:00 Urine Color Yellow (YELLOW) 02/17/18 18:00 Urine Clarity Slighty-cloudy (Clear) 02/17/18 18:00 Urine pH 6.0 (5.0-8.0) 02/17/18 18:00 Ur Specific [place] 1.012 (1.003-1.030) 02/17/18 18:00 Urine Protein 100 mg/dL (NEGATIVE) 02/17/18 18:00 Urine Glucose (UA) Neg mg/dL (Normal) 02/17/18 18:00 Urine Ketones Trace mg/dL (NEGATIVE) 02/17/18 18:00 Urine Blood Negative (NEGATIVE) 02/17/18 18:00 Urine Nitrate Negative (NEGATIVE) 02/17/18 18:00 Urine Bilirubin Negative (NEGATIVE) 02/17/18 18:00 Urine Urobilinogen 0.2-1.0 mg/dL (0.2-1.0) 02/17/18 18:00 Ur Leukocyte Esterase Small [place]/uL (Negative) 02/17/18 18:00 Urine RBC (Auto) 3 /hpf (0-3) 02/17/18 18:00 Urine Microscopic WBC 5 /hpf (0-5) 02/17/18 18:00 Ur Squamous Epith Cells < 1 /hpf (0-5) 02/17/18 18:00 Urine Bacteria Rare (<OCC) 02/17/18 18:00 Vancomycin Trough 19.2 ug/mL (5.0-10.0) H 02/20/18 06:30 Urine Opiates Screen Negative (NEGATIVE) 02/17/18 18:00 Urine Methadone Screen Negative (NEGATIVE) 02/17/18 18:00 Ur Barbiturates Screen Negative (NEGATIVE) 02/17/18 18:00 Ur Phencyclidine Scrn Negative (NEGATIVE) 02/17/18 18:00 Ur Amphetamines Screen Negative (NEGATIVE) 02/17/18 18:00 U Benzodiazepines Scrn Negative (NEGATIVE) 02/17/18 18:00 U Oth Cocaine Metabols Negative (NEGATIVE) 02/17/18 18:00 U Cannabinoids Screen Negative (NEGATIVE) 02/17/18 18:00 Alcohol, Quantitative < 10 mg/dl (0-10) 02/17/18 14:20 - Hospital Course Hospital Course: 87 year old female with a past medical history of CKD stage III ,essential hypertension, type 2 DM, hypercholesterolemia, bilateral knee arthritis, gouty arthritis, spinal stenosis,diastolic CHF, CAD, gastrointestinal ulceration, presented to the ED from [facility] due to worsening mental status and agitation. In the ED, the patient was acutely agitated and confused, trying to bite and hit medical staff, requiring 2 mg of Ativan IV before being sedated. She was initially going to be admitted to [facility], however she was found on labwork to have leukocytosis of 15.6 with neutrophilia. CXR showed Left basilar mild/moderate pleural effusion with possible infiltrate vs atelectasis. CT head was done which shows right sided otomastoiditis. She has bilateral pedal edema which is chronic as well. On telemetry the patient was found to be tachycardic with what appeared suspicious for atrial flutter.Patient was admitted to telemetry for further workup and management. She was started on vanco and Zosyn IV. Cardiology , psych and ENt consulted. Clinically and mental status improved . At present she is hemodynamically stable , afebrile, awake, alert , oriented to self and place.Answering all the questions appropriately. She can not understand what exactly happened since she thought that somebody was hurting her . At present she is calm cooperative in NAD ,able to eat her full tray. At this point her AMS was probably secpondary to infection and since it has improved with IV antibiotics she does not need any psych admission at this time. ( As per patient her POA USED TO BE A FRIEND BUT CURRENTLY SHE HAS ASKED HER NEPHEW TO BE HER POA BUT HE HAS NOT BEEN ABLE TO GET ALL LEGAL PAPERS IN ORDER) CLINICALLY MUCH IMPROVED Will d/c to [facility] .Continue IV antibiotics for 5 more days 1.Altered mental status metabolic encephalopathy secondary to infection ,superimposed on dementia Blood cx with no growth CXR showed suspicious infiltrate CT head showed right osteomastoiditis Continue Vanco and Zosyn IV for 5 more days ( total 7 ) Haldol PRN for agitation at present awake , alert and oriented to self and place.Answering alll questions appropriately , calm and cooperative Will d/c to [facility] 2. Suspected sepsis patient was febrile Tmax 101.2 , WBC elevated [address] head showing right osteomastoiditis Blood cx with no growth Continue IV vanco and Zosyn IV for total 7 days. Decrease Vanco to 750 mg IV daily from 1 g IV daily . Continue Zosyn CXR showed atelectasis vs infiltrate -- suspicious for pneumonia( less likely since patient has no upper respiratory symptoms) 3. Sinus Tachycardia with MAT cardiology consult with Dr. Stinson appreciated Continue Lopressor 25 mg po q8h and titrate up if necessary 4.Mild diastolic CHF and pulmonary arterial hypertension hx with left sided mild to moderate pleural effusion on lopressor,Isosorbide mononitrate and torsemide Cardiology consult appreciated 5. Type 2 DM appears well controlled based on previous HGA1C of 6.0 Lispro sliding scale Glucotrol on hold 6. Uncontrolled HTN Continue Cozaar 100 mg po daily and Lopressor and torsemide d/c Torsemide 7.GERD, hx of esophageal ulcers Continue Pepcid 20 mg po HS 8. CKD stage III stable given IVF stable when compared to prior admissions 9.Mild Anemia of chronic disease on epopoetin unclear etiology stable 10. 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 absent: Rales, Rhonchi, Wheezes - Cardiovascular Exam Cardiovascular Exam: REGULAR RHYTHM, RRR, +S1, +S2. absent: JVD - GI/Abdominal Exam GI & Abdominal Exam: Normal Bowel Sounds, Soft. absent: Distended, Guarding, Rebound, Tenderness - Rectal Exam Rectal Exam: Deferred - Extremities Exam Extremities exam: normal capillary refill, normal inspection, pedal edema (1 + bilaterally ), pedal pulses present - Neurological Exam Neurological exam: Alert, CN II-XII Intact, Reflexes Normal - Psychiatric Exam Psychiatric exam: Normal Affect - Skin Skin Exam: Dry, Normal Color, Warm Discharge Plan - Discharge Medications Prescriptions: Haloperidol [Haldol] 0.5 mg PO Q8 PRN #60 tab PRN Reason: Agitation Piperacill/Tazo 2.25gm in Dex [Zosyn 2.25 Gm IV Premix] 2.25 gm IV Q8 #15 bag Vancomycin 750mg/NS 150 ml [Vancocin 750MG/NS 150 ML] 750 mg IV DAILY #5 vial - Follow Up Plan Condition: STABLE Disposition: TRANSF TO SNF Patient education suggested?: Yes Instructions: Mastoiditis (DC), Altered Mental Status (DC) Referrals: Chico Carroll MD [Staff Provider] -
[2018-02-20 12:16] VITALS: TEMP 97.6; O2SAT 97
[2018-02-20 13:35] VITALS: BP 171/83; PULSE 73
--- NOTE | 2018-02-22 08:37 | PQF GENQUE ---
Dr. Cheng, Please respond to the query in the "Physician Response" section o f the query form below. It is unclear whether the following diagnosis or diagnoses below were present on admission. DX.: Suspected sepsis 02/18 and 02/19 Attending (Hospitalist): progress note: Suspected sepsis patient was febrile Tmax 101.2 , WBC elevated [address] head showing right osteomastoiditis Blood cx with no growth Continue IV vanco and Zosyn IV CXR showed atelectasis vs infiltrate -- suspicious for pneumonia( less likely since patient has no upper respiratory symptoms) This form is a permanent part of the medical record Clarification of your documentation is requested to better reflect the severity of illness and intensity of treatment of your patient. Indicators present [] Specify: [] [] Specify: [] [] Specify: [] [] Specify: [] Location in the medical record that reflects the above clinical findings: [] Treatment Provided: [] PHYSICIAN'S RESPONSE Sepsis was present on admission Based on your medical judgment of the clinical indicators outlined above please clarify the following: [] Practitioner response [] If unable to determine, please check the box, sign and date. Present On Admission (POA) Indicator: [] Present at the time of admission [] Not present at the time of admission [] Clinically Undetermined In responding to this query, please exercise your independent professional judgment. The fact that a question is asked does not imply that any particular answer is desired or expected. Thank you for your clarification on this documentation. If you have any questions please call. * Thank you, Disha Francisco RN ext. #[phone] MTDD
== END 2018-02-20 14:25 | DRG 871 ==
LOC: H.ER 13:07 → H.ERHOLD 17:00 → H.TEL 20:10
PROVIDERS: ADMIT Internal Medicine; ATTEND Internal Medicine
DX: A41.9 Sepsis, unspecified organism (principal); J18.9 Pneumonia, unspecified organism; G93.41 Metabolic encephalopathy; N17.9 Acute kidney failure, unspecified; I13.0 Hypertensive heart and chronic kidney disease with heart failure and stage 1 through stage 4 chronic kidney disease, or unspecified chronic kidney disease; I50.32 Chronic diastolic (congestive) heart failure; J44.0 Chronic obstructive pulmonary disease with (acute) lower respiratory infection; F01.51 Vascular dementia, unspecified severity, with behavioral disturbance; J98.11 Atelectasis; I47.1 Supraventricular tachycardia; E11.22 Type 2 diabetes mellitus with diabetic chronic kidney disease; E78.00 Pure hypercholesterolemia, unspecified; M17.0 Bilateral primary osteoarthritis of knee; M10.9 Gout, unspecified; I25.10 Atherosclerotic heart disease of native coronary artery without angina pectoris; Z95.5 Presence of coronary angioplasty implant and graft; H70.91 Unspecified mastoiditis, right ear; F41.9 Anxiety disorder, unspecified; I27.21 Secondary pulmonary arterial hypertension; K21.9 Gastro-esophageal reflux disease without esophagitis; Y95 Nosocomial condition; J34.2 Deviated nasal septum; D63.8 Anemia in other chronic diseases classified elsewhere; H40.9 Unspecified glaucoma; E87.6 Hypokalemia; H66.91 Otitis media, unspecified, right ear; N18.3 Chronic kidney disease, stage 3 (moderate)

== ENCOUNTER 2018-03-12 12:37 | Observation (INO) | payer MEDICARE, MEDICAID ==
[2018-03-12 12:37] VITALS: BMI 28.1
--- NOTE | 2018-03-12 13:29 | ED PDOC ---
HPI: Psych/Substance Abuse Time Seen by Provider: 03/12/18 12:47 Chief Complaint (Nursing): Psychiatric Evaluation Chief Complaint (Provider): Psychiatric Evaluation History Per: Patient History/Exam Limitations: no limitations Onset/Duration Of Symptoms: Days (03/12/18) Current Symptoms Are (Timing): Better Associated Symptoms: Agitation Additional Complaint(s): 87 year old female presents to the ED for psychiatric evaluation. Patient was brought from the snf and feels agitated. Patient was screaming at staff that there is something under the bed. Currently, she is calm and responds in the ED. Patient is behaving appropriately and has no other complaints. Denies headache, chest pain, abdominal pain, back pain, fever, chills, or difficulty breathing. PMD: Chico Carroll MD Past Medical History Reviewed: Historical Data, Nursing Documentation, Vital Signs Vital Signs: Last Vital Signs Temp 98.9 F 03/12/18 12:52 Pulse 78 03/12/18 12:52 Resp 16 03/12/18 12:52 BP 155/69 H 03/12/18 12:52 Pulse Ox 99 03/12/18 12:52 - Medical History PMH: Anemia, Anxiety, Arthritis, CAD, CHF, COPD, Depression, Diabetes, Gastrointestinal Ulcer, GERD, HTN, Hypercholesterolemia, Peripheral Edema, Chronic Kidney Disease - Surgical History Surgical History: Coronary Stent - Family History Family History: States: Unknown Family Hx - Immunization History Hx Tetanus Toxoid Vaccination: Yes Hx Influenza Vaccination: Yes Hx Pneumococcal Vaccination: Yes - Home Medications Home Medications: Ambulatory Orders Medication Instructions Recorded Acetaminophen [Tylenol 325mg tab] 650 mg PO Q4 PRN 02/17/18 Acetaminophen [Tylenol 325mg tab] 650 mg PO Q4 PRN 02/17/18 Allopurinol [Zyloprim] 100 mg PO DAILY 02/17/18 Brinzolamide [Azopt] 1 drop BOTHEYES TID 02/17/18 Calcitriol [Rocaltrol] 0.25 mcg PO DAILY 02/17/18 Ciclopirox [Penlac] 1 appl TOP HS 02/17/18 Diclofenac Sodium [Voltaren] 1 appl TOP BID 02/17/18 Divalproex [Depakote Sprinkles] 125 mg PO TID 02/17/18 Epoetin Carlos [Procrit] 10,000 unit SC Q7D 02/17/18 GlipiZIDE [Glucotrol] 10 mg PO BID 02/17/18 Isosorbide Mononitrate [Imdur] 60 mg PO DAILY 02/17/18 Lactulose [Generlac] 30 ml PO DAILY PRN 02/17/18 Latanoprost [Xalatan] 1 drop BOTHEYES HS 02/17/18 Linagliptin [Tradjenta] 5 mg PO DAILY 02/17/18 Losartan [Cozaar] 100 mg PO DAILY 02/17/18 M-Vit,Tx,Iron,Mins/Calc/Folic 1 tab PO QPM 02/17/18 [Thera-M Caplet] Metoprolol Tartrate [Lopressor] 25 mg PO Q8 02/17/18 Mirtazapine [Remeron] 22.5 mg PO HS 02/17/18 Propylene Glycol [Systane Balance] 1 drop BOTHEYES BID 02/17/18 Ranitidine HCl [Zantac] 150 mg PO HS 02/17/18 Sennosides/Docusate Sodium [Stool 1 tab PO BID 02/17/18 Softener-Laxative Tablet] Timolol Maleate [Timoptic-Xe] 1 drop BOTHEYES Q12 02/17/18 Torsemide [Demadex] 100 mg PO DAILY PRN 02/17/18 traMADol [Ultram] 50 mg PO Q6 PRN 02/17/18 Aspirin [Aspirin Chewable] 81 mg PO DAILY 03/12/18 Cholecalciferol (Vitamin D3) 2,000 unit PO DAILY 03/12/18 [Vitamin D3] Lidocaine 2% [Xylocaine 2%] 1 appl TOP QSHIFT 03/12/18 Mag Hydrox/Aluminum Hyd/Simeth 30 ml PO Q4 PRN 03/12/18 [Maalox Advanced Suspension] Magnesium Hydroxide [Milk Of 30 ml PO DAILY PRN 03/12/18 Magnesia] cloNIDine [Catapres] 0.1 mg PO Q12 03/12/18 hydrALAZINE [Apresoline] 50 mg PO Q8 03/12/18 - Allergies Allergies/Adverse Reactions: Allergies Allergy/AdvReac Type Severity Reaction Status Date / Time No Known Allergies Allergy Verified 12/10/17 18:41 Review of Systems ROS Statement: Except As Marked, All Systems Reviewed And Found Negative Constitutional: Negative for: Fever Cardiovascular: Negative for: Chest Pain Respiratory: Negative for: Cough Gastrointestinal: Negative for: Abdominal Pain Musculoskeletal: Negative for: Back Pain Neurological: Negative for: Headache Psych: Positive for: Other (agitated) Physical Exam - Reviewed Nursing Documentation Reviewed: Yes Vital Signs Reviewed: Yes - Physical Exam Appears: Positive for: Well, Non-toxic, No Acute Distress Head Exam: Positive for: ATRAUMATIC, NORMAL INSPECTION, NORMOCEPHALIC Skin: Positive for: Normal Color, Warm, Dry Eye Exam: Positive for: EOMI, Normal appearance, PERRL ENT: Positive for: Normal ENT Inspection Neck: Positive for: Normal, Painless ROM, Supple. Negative for: Decreased ROM Cardiovascular/Chest: Positive for: Regular Rate, Rhythm. Negative for: Murmur Respiratory: Positive for: Normal Breath Sounds (lungs clear bilaterally ). Negative for: Decreased Breath Sounds, Accessory Muscle Use, Respiratory Distress Gastrointestinal/Abdominal: Positive for: Normal Exam, Bowel Sounds, Soft. Negative for: Tenderness, Guarding, Rebound Back: Positive for: Normal Inspection. Negative for: L CVA Tenderness, R CVA Tenderness Extremity: Positive for: Normal ROM (skin intact, lower extremity 2+ pitting edema). Negative for: Tenderness, Pedal Edema, Deformity Neurologic/Psych: Positive for: Alert, Oriented (x3), Other (Sleeping but easily arousable. Knows year but does not know what day or month it is). Negative for: Motor/Sensory Deficits - ECG O2 Sat by Pulse Oximetry: 99 (RA) Pulse Ox Interpretation: Normal Medical Decision Making Medical Decision Making: Time: 1309 Initial Impression: Agitation exclude electrolyte abnormalities and infection. Once labs confirm, then move patient to crisis evaluation. Initial Plan: --EKG --CMP --Crisis Evaluation --ED Urine Dipstick --CBC w/ Differential --Chest One View --Glucose, Blood, POC --Reevaluation Scribe Attestation: Documented by Isabella Palm, acting as a scribe for Corla Salvador MD Provider Scribe Attestation: All medical record entries made by the Scribe were at my direction and personally dictated by me. I have reviewed the chart and agree that the record accurately reflects my personal performance of the history, physical exam, medical decision making, and the department course for this patient. I have also personally directed, reviewed, and agree with the discharge instructions and disposition. 2.52p patient pending medical clearance prior to crisis eval Disposition - Clinical Impression Clinical Impression: Agitation - Patient ED Disposition Is Patient to be Admitted: Transfer of Care - Disposition Disposition: Transfer of Care Disposition Time: 14:52 Condition: STABLE Forms: [employer] (Danish) Patient Signed Over To: Jennifer Atkins
[2018-03-12 14:22] LABS: SQUAMOUS EPITHIAL 1 /hpf (0-5); URINE BACTERIA OCC (<OCC); URINE BILIRUBIN NEGATIVE (NEGATIVE); URINE BLOOD NEGATIVE (NEGATIVE); URINE CLARITY CLOUDY (Clear); URINE COLOR YELLOW (YELLOW); URINE GLUCOSE (UA) NEG (Normal); URINE LEUKOCYTE ESTERASE TRACE Leu/uL (Negative); URINE PROTEIN 100 mg/dL (NEGATIVE); URINE UROBILINOGEN 0.2-1.0 mg/dL (0.2-1.0)
--- NOTE | 2018-03-12 15:14 | ED PDOC ---
- Laboratory Results Result Diagrams: 03/12/18 15:00 03/12/18 15:00 - ECG Interpretation Of ECG: Multifocal atrial rhythm. O2 Sat by Pulse Oximetry: 99 (RA) Pulse Ox Interpretation: Normal Medical Decision Making Medical Decision Making: Time: 1500 Patient signed over to me by Dr. Salvador pending medical clearance and crisis evaluation. Accession No. : [id number] Patient Name / ID : JAMIA NORIEGA / [id number] Exam Date : 03/12/2018 13:32:48 ( Approved ) Study Comment : Sex / Age : F / 87Y Creator : Miguel A Haider MD Dictator : Miguel A Haider MD Dumper Bailer Operator : Service Now Developer : Miguel A Haider MD Approver2 : Report Date : 03/12/2018 16:09:42 My Comment : PROCEDURE: CHEST RADIOGRAPH, 1 VIEW HISTORY: AGITATION COMPARISON: 02/17/2018 FINDINGS: LUNGS: Bilateral interstitial change. PLEURA: No pneumothorax or pleural fluid seen. CARDIOVASCULAR: Normal. OSSEOUS STRUCTURES: No significant abnormalities. VISUALIZED UPPER ABDOMEN: Normal. OTHER FINDINGS: None. IMPRESSION: Bilateral interstitial change. MEDICAL CLEARANCE: Pt medically cleared for psychiatric evaluation. Scribe Attestation: Documented by Isabella Palm, acting as a scribe for Jennifer Atkins MD Provider Scribe Attestation: All medical record entries made by the Scribe were at my direction and personally dictated by me. I have reviewed the chart and agree that the record accurately reflects my personal performance of the history, physical exam, medical decision making, and the department course for this patient. I have also personally directed, reviewed, and agree with the discharge instructions and disposition. Disposition - Clinical Impression Clinical Impression: UTI (urinary tract infection), Schizophrenia, undifferentiated - POA Present On Arrival: None - Disposition Disposition: Hospitalized as Observation Patient Disposition Time: 19:34 Condition: STABLE Forms: [employer] (Kyrgyz)
[2018-03-12 15:16] LABS: BASO % 0.6 % (0.0-2.0); EOS # 0.3 K/uL (0.0-0.7); EOS % 3.7 % (0.0-4.0); HEMOGLOBIN 10.4 g/dL (12.0-16.0); LYMPH # 0.8 K/uL (1.0-4.3); MEAN CELL VOLUME 85.8 fl (81.0-99.0); MEAN CORPUSCULAR HEMOGLOBIN 27.8 pg (27.0-31.0); MEAN CORPUSCULAR HGB CONC 32.3 g/dL (33.0-37.0); MEAN PLATELET VOLUME 8.2 fl (7.2-11.7); MONO # 0.6 K/uL (0.0-0.8); MONO % 8.3 % (0.0-10.0); NEUT # 5.3 K/uL (1.8-7.0); NEUT % 76.4 % (50.0-75.0); NRBC % 0.1 % (0.0-0.0); RBC 3.74 Mil/uL (3.80-5.20); RED CELL DISTRIBUTION WIDTH 20.2 % (11.5-14.5); WHITE BLOOD COUNT 6.9 K/uL (4.8-10.8)
[2018-03-12 15:30] LABS: ALB/GLOB RATIO 0.8 (1.0-2.1); ALBUMIN 2.5 g/dL (3.5-5.0); CALCIUM 8.3 mg/dL (8.4-10.2)
--- NOTE | 2018-03-12 16:54 | RAD ---
PROCEDURE: CHEST RADIOGRAPH, 1 VIEW HISTORY: AGITATION COMPARISON: 02/17/2018 FINDINGS: LUNGS: Bilateral interstitial change. PLEURA: No pneumothorax or pleural fluid seen. CARDIOVASCULAR: Normal. OSSEOUS STRUCTURES: No significant abnormalities. VISUALIZED UPPER ABDOMEN: Normal. OTHER FINDINGS: None. IMPRESSION: Bilateral interstitial change.
[2018-03-12] MEDS ORDERED: Lactulose 10 gm/15 ml (Rectal Use) PR PRN (19:17)
[2018-03-12] MEDS ORDERED: Alum-Mag Hydrox-Simethicone Susp (30 mL) PO PRN (19:17)
[2018-03-12] MEDS ORDERED: Magnesium Hydroxide Susp 30 ml UD PO PRN (19:17)
[2018-03-12] MEDS ORDERED: EPOETIN ALFA 10,000 UNIT/ML ML SC SCH (19:30)
[2018-03-12] MEDS ORDERED: Lidocaine 2% GEL TOP SCH (19:30)
--- NOTE | 2018-03-12 19:41 | CP.PCM.HP ---
History of Present Illness - History of Present Illness History of Present Illness: CC: Altered mental status 87 year old female with a past medical history of CKD stage III ,essential hypertension, type 2 DM, hypercholesterolemia, bilateral knee arthritis, gouty arthritis, spinal stenosis,diastolic CHF, CAD, gastrointestinal ulceration, presented to the ED from [facility] due to worsening mental status and agitation. The patient was found under her bed apparently and was hallucinating. In the ED she was found to have UTI. Otherwise she was found to be hemodynamically stable. She is unable to answer any questions currently and is somnolent. Patient was initially to be admitted to inpatient psych unit but POA is unable to be contacted. She will be admitted for medical tx of her UTI. PMD: Carly Present on Admission - Present on Admission Any Indicators Present on Admission: No Review of Systems - Review of Systems Systems not reviewed;Unavailable: Dementia - Hematologic/Lymphatic Additional comments: A 12 point review of systems was conducted and found to be negative other than what was mentioned in the HPI. Past Patient History - Infectious Disease Hx of Infectious Diseases: None - Past Medical History & Family History Past Medical History?: Yes Past Family History: Reviewed and not pertinent - Past Social History Smoking Status: Never Smoked - CARDIAC Hx Congestive Heart Failure: Yes Hx Hypercholesterolemia: Yes Hx Hypertension: Yes Hx Peripheral Edema: Yes - PULMONARY Hx Chronic Obstructive Pulmonary Disease (COPD): Yes - HEENT Hx HEENT Problems: Yes Hx Cataracts: Yes (both eyes,got operated on) Hx Glaucoma: Yes (ronald. eyes) Other/Comment: uses reading eyeglasses - RENAL Hx Chronic Kidney Disease: Yes - ENDOCRINE/METABOLIC Hx Endocrine Disorders: Yes Hx Diabetes Mellitus Type 2: Yes - HEMATOLOGICAL/ONCOLOGICAL Hx Anemia: Yes - INTEGUMENTARY Hx Dermatological Problems: No - MUSCULOSKELETAL/RHEUMATOLOGICAL Hx Arthritis: Yes - GASTROINTESTINAL Hx Gastrointestinal Disorders: Yes Hx Gastroesophageal Reflux: Yes HX Swallowing Problems: Yes (as per HPI) Hx Ulcer: Yes - PSYCHIATRIC Hx Anxiety: Yes Hx Depression: Yes - SURGICAL HISTORY Hx Coronary Stent: Yes - ANESTHESIA Hx Anesthesia: Yes Hx Anesthesia Reactions: No Hx Malignant Hyperthermia: No Meds Allergies/Adverse Reactions: Allergies Allergy/AdvReac Type Severity Reaction Status Date / Time No Known Allergies Allergy Verified 12/10/17 18:41 Physical Exam - Additional Findings Additional findings: Physical exam: Constitutional- elderly confused and demented female, sedated, not oriented Head- NCAT, PERRL Eye- PERRL, EOMI ENT- normal exam, MMM. Neck- normal inspection, supple, no JVD Respiratory- CTAB, no rhonchi Cardiovascular- irregular rate and rhythm, tachycardia +S1, +S2 no MRG GI/Abdominal- normal bowel sounds, soft, no mass, no hsm Skin- warm, dry Extremities Exam- +1 bilateral lower extremity edema, normal capillary refill, normal inspection Neurological Exam- unable to perform Psych-sedated, confused Results - Vital Signs Recent Vital Signs: Last Vital Signs Temp 98.9 F 03/12/18 17:48 Pulse 58 L 03/12/18 17:48 Resp 16 03/12/18 17:48 BP 130/78 03/12/18 17:48 Pulse Ox 99 03/12/18 19:35 - Labs Result Diagrams: 03/12/18 15:00 03/12/18 15:00 Labs: Laboratory Results - last 24 hr 03/12/18 03/12/18 03/12/18 13:42 14:00 15:00 WBC 6.9 RBC 3.74 L Hgb 10.4 L Hct 32.1 L MCV 85.8 MCH 27.8 MCHC 32.3 L RDW 20.2 H Plt Count 243 MPV 8.2 Neut % (Auto) 76.4 H Lymph % (Auto) 11.0 L [place] % (Auto) 8.3 Eos % (Auto) 3.7 Baso % (Auto) 0.6 Neut # (Auto) 5.3 Lymph # (Auto) 0.8 L [place] # (Auto) 0.6 Eos # (Auto) 0.3 Baso # (Auto) 0.0 Sodium Potassium Chloride Carbon Dioxide Anion Gap BUN Creatinine Est GFR ( Amer) Est GFR (Non-Af Amer) POC Glucose (mg/dL) 157 H Random Glucose Calcium Total Bilirubin AST ALT Alkaline Phosphatase Total Protein Albumin Globulin Albumin/Globulin Ratio Urine Color Yellow Urine Clarity Cloudy Urine pH 6.0 Ur Specific [place] 1.019 Urine Protein 100 Urine Glucose (UA) Neg Urine Ketones Negative Urine Blood Negative Urine Nitrate Positive H Urine Bilirubin Negative Urine Urobilinogen 0.2-1.0 Ur Leukocyte Esterase Trace Urine RBC (Auto) 4 H Urine Microscopic WBC 6 H Ur Squamous Epith Cells 1 Urine Bacteria Occ H Hyaline Casts 3-5 H 05/18/ 15:00 WBC RBC Hgb Hct MCV MCH MCHC RDW Plt Count MPV Neut % (Auto) Lymph % (Auto) [place] % (Auto) Eos % (Auto) Baso % (Auto) Neut # (Auto) Lymph # (Auto) [place] # (Auto) Eos # (Auto) Baso # (Auto) Sodium 146 Potassium 4.0 Chloride 111 H Carbon Dioxide 24 Anion Gap 15 BUN 19 H Creatinine 1.5 H Est GFR ( Amer) 40 Est GFR (Non-Af Amer) 33 POC Glucose (mg/dL) Random Glucose 148 H Calcium 8.3 L Total Bilirubin 0.3 AST 19 ALT 25 Alkaline Phosphatase 58 Total Protein 5.6 L Albumin 2.5 L Globulin 3.1 Albumin/Globulin Ratio 0.8 L Urine Color Urine Clarity Urine pH Ur Specific [place] Urine Protein Urine Glucose (UA) Urine Ketones Urine Blood Urine Nitrate Urine Bilirubin Urine Urobilinogen Ur Leukocyte Esterase Urine RBC (Auto) Urine Microscopic WBC Ur Squamous Epith Cells Urine Bacteria Hyaline Casts Assessment & Plan - Assessment and Plan (Free Text) Plan: 87 year old female with a past medical history of CKD stage III ,essential hypertension, type 2 DM, hypercholesterolemia, bilateral knee arthritis, gouty arthritis, spinal stenosis,diastolic CHF, CAD, gastrointestinal ulceration, presented to the ED from [facility] due to worsening mental status and agitation. The patient was found under her bed apparently and was hallucinating. In the ED she was found to have UTI. Otherwise she was found to be hemodynamically stable. She is unable to answer any questions currently and is somnolent. Patient was initially to be admitted to inpatient psych unit but POA is unable to be contacted. She will be admitted for medical tx of her UTI. 1) Altered mental status due to UTI. Metabolic and toxic combined encephalopathy secondary to infection, superimposed on dementia - Cipro IV q 12 hours for empiric tx - f/u blood, urine cultures 2) History of Mild diastolic CHF and pulmonary arterial hypertension - Lopressor - Isosorbide mononitrate - Torsemide 3) Type 2 DM - Lispro sliding scale - Glucotrol 4) Uncontrolled htn - Continue Cozaar 100 mg po daily and Lopressor and torsemide d/c Torsemide 5. .GERD, hx of esophageal ulcers Continue Pepcid 20 mg po HS 6. CKD stage III stable given IVF stable when compared to prior admissions 7.Mild Anemia of chronic disease on epopoetin unclear etiology stable 8. 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 DVT prophylaxis - Heparin
[2018-03-12] MEDS ORDERED: Lidocaine 2% Jelly (5 ml) TOP SCH (21:45)
[2018-03-12] MEDS ORDERED: CICLOPIROX APPL TOP SCH (22:00)
[2018-03-12] MEDS: Latanoprost 0.005% Opht SOUTION OU SCH (22:13)
[2018-03-12] MEDS: Insulin Lispro (humaLOG) 100 Units/ml Inj SC SCH (22:15)
[2018-03-13] MEDS: Insulin Lispro (humaLOG) 100 Units/ml Inj SC SCH ×3 (08:35→22:10)
[2018-03-13] MEDS: Artificial Tears Opht Soln OU SCH ×2 (08:39→18:04)
[2018-03-13] MEDS: Docusate-Senna 50 mg-8.6 mg Tab PO SCH ×2 (08:45→17:59)
[2018-03-13] MEDS: Divalproex 125 mg Sprinkle Capsule PO SCH ×3 (08:46→18:00)
[2018-03-13] MEDS: Cholecalciferol 1,000 INTLU TAB PO SCH (08:49)
[2018-03-13] MEDS: Dorzolamide 2% Ophth Soln OU SCH ×3 (08:50→17:35)
[2018-03-13] MEDS: Lidocaine 5% Patch TD SCH (09:55)
--- NOTE | 2018-03-13 10:44 | CARD ---
APPROVED REPORT EKG Measurement Heart [id number] <Conclusion> Undetermined rhythm Septal infarct, age undetermined ST & T wave abnormality, consider lateral ischemia Abnormal ECG
[2018-03-13] MEDS: Ciprofloxacin 400mg/200ml D5W 400 MG/200 ML BAG IVPB SCH ×2 (11:56→21:04)
[2018-03-13 12:01] LABS: HEMOGLOBIN 10.1 g/dL (12.0-16.0); MEAN CELL VOLUME 85.9 fl (81.0-99.0); MEAN CORPUSCULAR HEMOGLOBIN 28.4 pg (27.0-31.0); MEAN CORPUSCULAR HGB CONC 33.1 g/dL (33.0-37.0); RBC 3.57 Mil/uL (3.80-5.20); RED CELL DISTRIBUTION WIDTH 20.5 % (11.5-14.5); WHITE BLOOD COUNT 8.7 K/uL (4.8-10.8)
[2018-03-13 12:12] LABS: CALCIUM 8.4 mg/dL (8.4-10.2)
[2018-03-13] MEDS: Multivitamin With Minerals Tab PO SCH (18:00)
--- NOTE | 2018-03-13 19:26 | CP.PCM.PN ---
Subjective - Date & Time of Evaluation Date of Evaluation: 03/13/18 Time of Evaluation: 17:00 - Subjective Subjective: Patient seen and examined. Appeared confused and would not answer questions. Objective - Vital Signs/Intake and Output Vital Signs (last 24 hours): Temp Pulse Resp BP Pulse Ox 98.1 F 53 L 20 196/72 H 100 03/13/18 16:56 03/13/18 18:01 03/13/18 16:56 03/13/18 18:01 03/13/18 16:56 - Medications Medications: Current Medications Acetaminophen (Tylenol 325mg Tab) 650 mg PO Q4 PRN PRN Reason: Pain, Mild (1-3) Acetaminophen (Tylenol 325mg Tab) 650 mg PO Q4 PRN PRN Reason: Temp >100 Al Hydrox/Mg Hydrox/Simethicone (Maalox Plus 30 Ml) 30 ml PO Q4 PRN PRN Reason: heartburn/indigestion Allopurinol (Zyloprim) 100 mg PO DAILY [facility] Last Admin: 03/13/18 08:45 Dose: 100 mg Artificial Tears (Artificial Tears) 1 drop OU BID [facility] Last Admin: 03/13/18 18:04 Dose: 1 drop Aspirin (Aspirin Chewable) 81 mg PO DAILY [facility] Last Admin: 03/13/18 08:46 Dose: 81 mg Calcitriol (Rocaltrol) 0.25 mcg PO DAILY [facility] Last Admin: 03/13/18 08:40 Dose: 0.25 mcg Cholecalciferol (Vitamin D) 2,000 intlu PO DAILY [facility] Last Admin: 03/13/18 08:49 Dose: 2,000 intlu Clonidine HCl (Catapres) 0.1 mg PO Q12 [facility] Last Admin: 03/13/18 08:44 Dose: 0.1 mg Divalproex Sodium (Depakote Sprinkles) 125 mg PO TID [facility] Last Admin: 03/13/18 18:00 Dose: 125 mg Dorzolamide HCl (Trusopt) 1 drop OU TID [facility] Last Admin: 03/13/18 17:35 Dose: 1 drop Epoetin Carlos (Procrit) 10,000 unit SC Q7D [facility] Last Admin: 03/12/18 21:08 Dose: 10,000 unit Famotidine (Pepcid) 20 mg PO HS [facility] Last Admin: 03/12/18 22:12 Dose: 20 mg Glipizide (Glucotrol) 10 mg PO BID [facility] Last Admin: 03/13/18 17:59 Dose: 10 mg Haloperidol Lactate (Haldol) 5 mg IM Q6 PRN PRN Reason: Agitation Heparin Sodium (Porcine) (Heparin) 5,000 units SC Q12 NUNU PRN Reason: Protocol Last Admin: 03/13/18 08:42 Dose: 5,000 units Hydralazine HCl (Apresoline) 50 mg PO Q8 [facility] Last Admin: 03/13/18 18:01 Dose: 50 mg Ciprofloxacin (Cipro 400mg/200ml Dsw) 400 mg in 200 mls @ 200 mls/hr IVPB Q12 [facility] PRN Reason: Protocol Last Admin: 03/13/18 11:56 Dose: 200 mls/hr Insulin Human Lispro (Humalog) 0 units SC ACCU-CHECK [facility] PRN Reason: Protocol Last Admin: 03/13/18 13:08 Dose: 2 units Isosorbide Mononitrate (Imdur) 60 mg PO DAILY [facility] Last Admin: 03/13/18 08:47 Dose: 60 mg Lactulose (Generlac) 20 gm DC DAILY PRN PRN Reason: Constipation Latanoprost (Xalatan Opht) 1 drop OU HS [facility] Last Admin: 03/12/18 22:13 Dose: 1 drop Lidocaine (Lidoderm) 1 ea TD DAILY [facility] Last Admin: 03/13/18 09:55 Dose: Not Given Lidocaine HCl (Lidocaine Hydrochloride Jelly 2% 5 Ml) 1 ml TOP QSHIFT [facility] Losartan Potassium (Cozaar) 100 mg PO DAILY [facility] Last Admin: 03/13/18 08:41 Dose: 100 mg Magnesium Hydroxide (Milk Of Magnesia) 30 ml PO DAILY PRN PRN Reason: Constipation Metoprolol Tartrate (Lopressor) 25 mg PO Q8 [facility] Mirtazapine (Remeron) 22.5 mg PO HS [facility] Last Admin: 03/12/18 22:12 Dose: 22.5 mg Multivitamins/Minerals (Therapeutic-M Tab) 1 tab PO QPM [facility] Last Admin: 03/13/18 18:00 Dose: 1 tab Senna/Docusate Sodium (Senokot S 50 Mg-8.6 Mg) 1 tab PO BID [facility] Last Admin: 05/19/18 17:59 Dose: 1 tab Sitagliptin Phosphate (Januvia) 25 mg PO DAILY [facility] Last Admin: 03/13/18 08:45 Dose: 25 mg Timolol Maleate (Timoptic 0.25% Ophth Soln) 1 drop OU Q12 NUNU Torsemide (Demadex) 100 mg PO DAILY PRN PRN Reason: edema Tramadol HCl (Ultram) 50 mg PO Q6 PRN PRN Reason: Pain, severe (8-10) - Labs Labs: 03/13/18 11:57 03/13/18 11:57 - Constitutional Appears: No Acute Distress, Confused - Head Exam Head Exam: ATRAUMATIC - Eye Exam Eye Exam: PERRL. absent: Scleral icterus - ENT Exam ENT Exam: Mucous Membranes Moist - Neck Exam Neck Exam: absent: Meningismus - Respiratory Exam Respiratory Exam: absent: Rales, Rhonchi, Wheezes, Respiratory Distress - Cardiovascular Exam Cardiovascular Exam: REGULAR RHYTHM, +S1, +S2 - GI/Abdominal Exam GI & Abdominal Exam: Soft. absent: Tenderness - Rectal Exam Rectal Exam: Deferred - Neurological Exam Neurological Exam: Alert - Psychiatric Exam Psychiatric exam: Flat Affect - Skin Skin Exam: Dry, Intact Assessment and Plan - Assessment and Plan (Free Text) Assessment: 87 yo female with history of CKD, HTN, DM2, CHF and CAD brought in from shelter because of worsening mental status and agitation. She was supposed to be admitted to [facility] but was unable to get in touched with patient's POA. Her urine was positive for infection. She was admitted to med/surg and started on antibiotics while waiting to reach for her POA to sign for her admission to Psyche Unit. 1. AMS patient had similar incident a month ago where in she came in with confusion and pneumonia. After she was treated with IV antibiotics and condition improved , her mental status also improved this time patient was positive for UTI during urinalysis continue IV Cipro 400mg q 12hrs still waiting to reach for POA 2. CHF, Diastolic Dysfunction and Pulmonary HTN continue Isosorbide and Torsemide 3. DM2 BS controlled accuchek with Lispro coverage Glucotrol 10mg PO BOD 4. HTN BP stable continue Losartan. Lopresso and Torsemide 5. CKD stage III continue monitoring 6. Dementia worsened during infection continue Aleksander Mckeon
[2018-03-13] MEDS: Timolol 0.25% Ophth SOLN OU SCH ×2 (21:10→21:11)
[2018-03-13] MEDS: Latanoprost 0.005% Opht SOUTION OU SCH (21:12)
[2018-03-14] MEDS: Insulin Lispro (humaLOG) 100 Units/ml Inj SC SCH ×4 (06:39→23:51)
[2018-03-14] MEDS: Divalproex 125 mg Sprinkle Capsule PO SCH ×3 (09:21→16:59)
--- NOTE | 2018-03-14 09:56 | PCM.RRT ---
<Vega Sanderson - Last Filed: 03/14/18 13:06> PLANNING ANALYST Nurse Assessment - Situation Location: [address] [place] [address] Room Number: 665 PLANNING ANALYST Reason for Call: Bradycardia, Change in Mental Status PLANNING ANALYST Called By: RN - IV IV Inserted during PLANNING ANALYST?: No - Medication Medications Administered During PLANNING ANALYST: hydralazine 10 mg IV x2 - Diagnostic Test Ordered EKG: Yes - Vital Signs Vital Signs: Rapid Response Vital Sign Blood Pressure 205/75 Pulse Rate 49 Oxygen Saturation 99 - Time PLANNING ANALYST Ended Time PLANNING ANALYST Ended: 09:20 - Vital Signs at end of PLANNING ANALYST Vital Signs at end of PLANNING ANALYST: Rapid Response End Vital Sign Blood Pressure 177/66 - Recommendations PLANNING ANALYST Level of Care Recommendations: Remain in current setting I.Reason for PLANNING ANALYST - A) Acute Change in Patient: Subjective: PLANNING ANALYST Call Time: 09:08 am PLANNING ANALYST Arrival Time: 09:09 am PLANNING ANALYST Location: 6th floor Med-Surg Rm [id number] S: parts identifier was called on a 87 y/o female due to altered mental status, bradycardia and hypertension. Nurse reported pt was confused and unresponsive while taking her routine vital signs. Nurse reports pt was able to talk with psychiatry team for ~40 minutes, also pt was conversing with nurse and medical staff. O: --Vitals Signs: BP 205/75, HR 51, Sat O2 99% --Physical Exam: >GEN: Pt is lying on her bed, slow but able to respond to visual and tactile stimulation, looks confused. >HEENT: NC/AT, orpharynx with moist mucous membrane. >CV: Bradycardic at rate 56bpm, S1 and S2 present. >Lungs: CTAB >EXT: No cyanosis, b/l LE with edema. PLANNING ANALYST Interventions: -Hydrazaline 10mg IV administered. -EKG ordered and preliminarily with no ST-T wave changes. -Sinus rhythm on monitor, bradycardia -Repeat VS: BP 198/74, HR 48, Sat o2 98% -Medication list reviewed. -Another dose of 10mg Hydralazine administered. -Pt progressively became more responsive and able to state her name. Chest pain and SOB denied. Repeated VS: BP 143/68, HR 57, Sat 98% A/P 87 y/o F with a PMHx of CKD stage III, HTN, DM-2, HLD, bilateral knee arthritis , gouty arthritis, spinal stenosis, diastolic CHF, CAD, gastrointestinal ulceration was admitted due to altered and UTI at her [facility]. PLANNING ANALYST called due to bradycardia, hypertension and altered mental status. --After medications reviewed, Lopressor was stopped. --Hydralazine 50mg Q6H from Q8H --Torsemide PRN stopped, will give Lasix 20mg for HTN and lower leg edema. --Monitor VS. PLANNING ANALYST End TIme: 09:37 am PLANNING ANALYST Leader: Yamila Benedict - Hospitalist PLANNING ANALYST Resident: Dr Sanderson PGY-1, Dr Diallo PGY-3. <Yamila Toro - Last Filed: 03/14/18 16:17> PLANNING ANALYST Nurse Assessment - Vital Signs Vital Signs: Rapid Response Vital Sign Blood Pressure 205/75 Pulse Rate 49 Oxygen Saturation 99 - Vital Signs at end of PLANNING ANALYST Vital Signs at end of PLANNING ANALYST: Rapid Response End Vital Sign Blood Pressure 177/66 Attending/Attestation - Attestation I have personally seen and examined this patient.: Yes I have fully participated in the care of the patient.: Yes I have reviewed all pertinent clinical information, including history, physical exam and plan: Yes Notes (Text): A/P: 1. Hypertensive Urgency 2. Bradycardia sec to Beta Lulu - pt is awake, responsive though demented - EKG : no change - IV Hydralazine given - BP improved from 201/72 systolic to 177/66 after Hydralazine - will give am dose of antihypertensives - increase PO Hydralazine to 50 mg q 6 - will give one dose Lasix 20 mg IV - cont Imdur and Clonidine - d/c Metoprolol
[2018-03-14] MEDS: Ciprofloxacin 400mg/200ml D5W 400 MG/200 ML BAG IVPB SCH (10:03)
[2018-03-14] MEDS: Artificial Tears Opht Soln OU SCH ×2 (10:23→16:59)
[2018-03-14] MEDS: Lidocaine 5% Patch TD SCH (10:29)
[2018-03-14] MEDS: Cholecalciferol 1,000 INTLU TAB PO SCH (10:30)
[2018-03-14] MEDS: Docusate-Senna 50 mg-8.6 mg Tab PO SCH ×2 (10:30→16:59)
[2018-03-14] MEDS: Dorzolamide 2% Ophth Soln OU SCH ×3 (10:32→16:59)
[2018-03-14] MEDS: Timolol 0.25% Ophth SOLN OU SCH ×3 (10:34→21:18)
--- NOTE | 2018-03-14 17:07 | CP.PCM.PN ---
Subjective - Date & Time of Evaluation Date of Evaluation: 03/14/18 Time of Evaluation: 10:15 - Subjective Subjective: Patient seen and examined. Appeared somnolent and barely talking. Refused to answer questions. Objective - Vital Signs/Intake and Output Vital Signs (last 24 hours): Temp Pulse Resp BP Pulse Ox 98 F 57 L 18 166/73 H 98 03/14/18 16:35 03/14/18 16:35 03/14/18 16:35 03/14/18 16:35 03/14/18 16:35 - Medications Medications: Current Medications Acetaminophen (Tylenol 325mg Tab) 650 mg PO Q4 PRN PRN Reason: Pain, Mild (1-3) Acetaminophen (Tylenol 325mg Tab) 650 mg PO Q4 PRN PRN Reason: Temp >100 Al Hydrox/Mg Hydrox/Simethicone (Maalox Plus 30 Ml) 30 ml PO Q4 PRN PRN Reason: heartburn/indigestion Allopurinol (Zyloprim) 100 mg PO DAILY COUNT INCLUDES THE [facility] Last Admin: 03/14/18 10:31 Dose: 100 mg Artificial Tears (Artificial Tears) 1 drop OU BID COUNT INCLUDES THE [facility] Last Admin: 03/14/18 16:59 Dose: Not Given Aspirin (Aspirin Chewable) 81 mg PO DAILY COUNT INCLUDES THE [facility] Last Admin: 03/14/18 09:19 Dose: 81 mg Calcitriol (Rocaltrol) 0.25 mcg PO DAILY COUNT INCLUDES THE [facility] Last Admin: 03/14/18 09:22 Dose: 0.25 mcg Cholecalciferol (Vitamin D) 2,000 intlu PO DAILY COUNT INCLUDES THE [facility] Last Admin: 03/14/18 10:30 Dose: 2,000 intlu Clonidine HCl (Catapres) 0.1 mg PO Q12 COUNT INCLUDES THE [facility] Divalproex Sodium (Depakote Sprinkles) 125 mg PO TID COUNT INCLUDES THE [facility] Last Admin: 03/14/18 16:59 Dose: Not Given Dorzolamide HCl (Trusopt) 1 drop OU TID COUNT INCLUDES THE [facility] Last Admin: 03/14/18 16:59 Dose: Not Given Epoetin Carlos (Procrit) 10,000 unit SC Q7D COUNT INCLUDES THE [facility] Last Admin: 03/12/18 21:08 Dose: 10,000 unit Famotidine (Pepcid) 20 mg PO HS COUNT INCLUDES THE [facility] Last Admin: 03/13/18 21:09 Dose: 20 mg Glipizide (Glucotrol) 10 mg PO BID COUNT INCLUDES THE [facility] Last Admin: 03/14/18 16:58 Dose: Not Given Haloperidol Lactate (Haldol) 5 mg IM Q6 PRN PRN Reason: Agitation Heparin Sodium (Porcine) (Heparin) 5,000 units SC Q12 NUNU PRN Reason: Protocol Last Admin: 03/14/18 10:26 Dose: 5,000 units Hydralazine HCl (Apresoline) 50 mg PO Q6 COUNT INCLUDES THE [facility] Last Admin: 03/14/18 16:47 Dose: 50 mg Ceftriaxone Sodium 1 gm/ (Sodium Chloride) 100 mls @ 100 mls/hr IVPB DAILY COUNT INCLUDES THE [facility] PRN Reason: Protocol Last Admin: 03/14/18 10:34 Dose: 100 mls/hr Insulin Human Lispro (Humalog) 0 units SC ACCU-CHECK COUNT INCLUDES THE [facility] PRN Reason: Protocol Last Admin: 03/14/18 16:58 Dose: Not Given Isosorbide Mononitrate (Imdur) 60 mg PO DAILY COUNT INCLUDES THE [facility] Last Admin: 03/14/18 09:19 Dose: 60 mg Lactulose (Generlac) 20 gm [place] DAILY PRN PRN Reason: Constipation Latanoprost (Xalatan Opht) 1 drop OU HS COUNT INCLUDES THE [facility] Last Admin: 03/13/18 21:12 Dose: 1 drop Lidocaine (Lidoderm) 1 ea TD DAILY COUNT INCLUDES THE [facility] Last Admin: 03/14/18 10:29 Dose: Not Given Lidocaine HCl (Lidocaine Hydrochloride Jelly 2% 5 Ml) 1 ml TOP QSHIFT COUNT INCLUDES THE [facility] Losartan Potassium (Cozaar) 100 mg PO DAILY COUNT INCLUDES THE [facility] Last Admin: 03/14/18 09:19 Dose: 100 mg Magnesium Hydroxide (Milk Of Magnesia) 30 ml PO DAILY PRN PRN Reason: Constipation Mirtazapine (Remeron) 22.5 mg PO HS COUNT INCLUDES THE [facility] Last Admin: 03/13/18 21:10 Dose: 22.5 mg Multivitamins/Minerals (Therapeutic-M Tab) 1 tab PO QPM COUNT INCLUDES THE [facility] Last Admin: 03/13/18 18:00 Dose: 1 tab Senna/Docusate Sodium (Senokot S 50 Mg-8.6 Mg) 1 tab PO BID COUNT INCLUDES THE [facility] Last Admin: 03/14/18 16:59 Dose: Not Given Sitagliptin Phosphate (Januvia) 25 mg PO DAILY COUNT INCLUDES THE [facility] Last Admin: 03/14/18 09:20 Dose: 25 mg Timolol Maleate (Timoptic 0.25% Ophth Soln) 1 drop OU Q12 NUNU Last Admin: 03/14/18 10:34 Dose: 1 drop Torsemide (Demadex) 20 mg PO DAILY NUNU Tramadol HCl (Ultram) 50 mg PO Q6 PRN PRN Reason: Pain, severe (8-10) - Labs Labs: 03/13/18 11:57 03/13/18 11:57 - Constitutional Appears: No Acute Distress, Confused - Head Exam Head Exam: ATRAUMATIC - Eye Exam Eye Exam: Periorbital swelling (don't know if periorbital edema is her baseline or this is something new), PERRL. absent: Scleral icterus - ENT Exam ENT Exam: Mucous Membranes Moist - Neck Exam Neck Exam: absent: Meningismus - Respiratory Exam Respiratory Exam: absent: Rales, Rhonchi, Wheezes, Respiratory Distress - Cardiovascular Exam Cardiovascular Exam: Bradycardia - GI/Abdominal Exam GI & Abdominal Exam: Soft. absent: Tenderness - Rectal Exam Rectal Exam: Deferred - Neurological Exam Neurological Exam: Awake (awake but refused to answer questions) - Psychiatric Exam Psychiatric exam: Flat Affect - Skin Skin Exam: Dry, Intact Assessment and Plan - Assessment and Plan (Free Text) Assessment: 87 yo female with history of CKD, HTN, DM2, CHF and CAD brought in from [facility] because of worsening mental status and agitation. She was supposed to be admitted to [facility] but was unable to get in touched with patient's POA. Her urine was positive for infection. She was admitted to med/surg and started on antibiotics while waiting to reach for her POA to sign for her admission to Psyche Unit. 1. AMS patient had similar incident a month ago where in she came in with confusion and pneumonia. After she was treated with IV antibiotics her condition improved. Her mental status also improved as well. this time patient was positive for UTI during urinalysis switch to Rocephin 1gm IV q 24hrs still waiting to reach for POA follow up blood and urine culture 2. CHF, Diastolic Dysfunction and Pulmonary HTN continue Isosorbide and Torsemide 3. DM2 BS controlled accuchek with Lispro coverage Glucotrol 10mg PO BOD 4. HTN BP controlled now with Losartan, Clonidine, Hydralazine and Torsemide Metoprolol DC because of bradycardia 5. CKD stage III continue monitoring 6. Dementia worsened during infection continue Remeron, Depakote 7. Bradycardia Metoprolol DC'd 8. DVT prophylaxis venodyne boots while in bed
[2018-03-14 19:59] LABS: SQUAMOUS EPITHIAL 1 /hpf (0-5); URINE BACTERIA RARE (<OCC); URINE BILIRUBIN NEGATIVE (NEGATIVE); URINE BLOOD SMALL (NEGATIVE); URINE CLARITY SLIGHTY-CLOUDY (Clear); URINE COLOR YELLOW (YELLOW); URINE GLUCOSE (UA) NEG (Normal); URINE LEUKOCYTE ESTERASE MOD Leu/uL (Negative); URINE PROTEIN 100 mg/dL (NEGATIVE); URINE UROBILINOGEN 0.2-1.0 mg/dL (0.2-1.0); WBC CLUMPS FEW /hpf
[2018-03-14] MEDS: Latanoprost 0.005% Opht SOUTION OU SCH (21:10)
--- NOTE | 2018-03-14 22:33 | PCM.PYCHPN ---
Psychiatric Progress Note - Psychiatric Progress Note Patient seen today, length of contact: case dicussed with team Patient Chief Complaint: pt reportedly has had decreased participation, decreased verbalization. pt reports pain bladder area. staff report pt had attempt at straight cath today. Problems Identified/Issues Discussed: alteration in cognition alteration in self care Medical Problems: per chart Diagnostic Results: per chart DSM 5 Symptoms Update: possible change in mood vs change in lof ?uti/recent straight cath Medication Change: No Medical Record Reviewed: Yes Consults ordered or reviewed: pt to be followed by primary team Mental Status Examination - Cognitive Function Orientation: Person Memory: Impaired Attention: Poor Concentration: Poor Association: Loose Fund of Knowledge: Poor Decription of patient's judgement and insights: impaired - Mood Mood: Depressed - Affect Affect: Constricted - Speech Speech: Soft - Formal Thought Process Formal Thought Process: No Impairment - Suicidal Ideation Suicidal Ideation: No - Homicidal Ideation Homicidal Ideation: No Goal/Treatment Plan - Goal/Treatment Plan Need for Continued Stay: Discharge may exacerbated symptoms, Severe functional impairment Progress Toward Problem(s) and Goals/Treatment Plan: inpt per primary medical team pt to be followed for changes related to overall health status team is attempting to contact halfway related is pt ? having poa. psychiatry can be reconsulted - Smoking Cessation Smoking Cessation Initiated: No Reason for not providing: history not indicated
[2018-03-14 23:55] VITALS: RESP 20; O2SAT 99
[2018-03-15] MEDS: Artificial Tears Opht Soln OU SCH ×2 (08:46→16:45)
[2018-03-15] MEDS: Lidocaine 5% Patch TD SCH (08:48)
[2018-03-15] MEDS: Divalproex 125 mg Sprinkle Capsule PO SCH ×3 (08:48→16:46)
[2018-03-15] MEDS: Cholecalciferol 1,000 INTLU TAB PO SCH (08:49)
[2018-03-15] MEDS: Dorzolamide 2% Ophth Soln OU SCH ×3 (08:49→16:58)
[2018-03-15] MEDS: Timolol 0.25% Ophth SOLN OU SCH (08:50)
[2018-03-15] MEDS: Docusate-Senna 50 mg-8.6 mg Tab PO SCH ×2 (08:50→16:52)
[2018-03-15] MEDS: Insulin Lispro (humaLOG) 100 Units/ml Inj SC SCH ×3 (08:51→16:50)
--- NOTE | 2018-03-15 12:18 | CP.PCM.DIS ---
Provider - Provider Date of Admission: 03/14/18 13:20 Attending physician: Ronal Quintero DO Time Spent in preparation of Discharge (in minutes): 30 Diagnosis - Discharge Diagnosis (1) Schizophrenia, undifferentiated Status: Acute (2) UTI (urinary tract infection) Status: Acute (3) Anxiety Status: Acute Hospital Course - Lab Results Lab Results: Micro Results 03/12/18 14:00 Urine,Clean Catch Urine Culture - Final 50-100,000 CFU/ML. MULTIPLE SPECIES. SUGGEST REPEAT SPECIMEN. Most Recent Lab Values WBC 8.7 K/uL (4.8-10.8) 03/13/18 11:57 RBC 3.57 Mil/uL (3.80-5.20) L 03/13/18 11:57 Hgb 10.1 g/dL (12.0-16.0) L 03/13/18 11:57 Hct 30.6 % (34.0-47.0) L 03/13/18 11:57 MCV 85.9 fl (81.0-99.0) 03/13/18 11:57 MCH 28.4 pg (27.0-31.0) 03/13/18 11:57 MCHC 33.1 g/dL (33.0-37.0) 03/13/18 11:57 RDW 20.5 % (11.5-14.5) H 03/13/18 11:57 Plt Count 225 K/uL (130-400) 03/13/18 11:57 MPV 8.2 fl (7.2-11.7) 03/12/18 15:00 Neut % (Auto) 76.4 % (50.0-75.0) H 03/12/18 15:00 Lymph % (Auto) 11.0 % (20.0-40.0) L 03/12/18 15:00 Traverse % (Auto) 8.3 % (0.0-10.0) 03/12/18 15:00 Eos % (Auto) 3.7 % (0.0-4.0) 03/12/18 15:00 Baso % (Auto) 0.6 % (0.0-2.0) 03/12/18 15:00 Neut # (Auto) 5.3 K/uL (1.8-7.0) 03/12/18 15:00 Lymph # (Auto) 0.8 K/uL (1.0-4.3) L 03/12/18 15:00 Traverse # (Auto) 0.6 K/uL (0.0-0.8) 03/12/18 15:00 Eos # (Auto) 0.3 K/uL (0.0-0.7) 03/12/18 15:00 Baso # (Auto) 0.0 K/uL (0.0-0.2) 03/12/18 15:00 Sodium 148 mmol/l (132-148) 03/13/18 11:57 Potassium 3.8 MMOL/L (3.6-5.0) 03/13/18 11:57 Chloride 112 mmol/L (98-107) H 03/13/18 11:57 Carbon Dioxide 25 mmol/L (22-30) 03/13/18 11:57 Anion Gap 15 (10-20) 03/13/18 11:57 BUN 18 mg/dl (7-17) H 03/13/18 11:57 Creatinine 1.5 mg/dl (0.7-1.2) H 03/13/18 11:57 Est GFR ( Amer) 40 03/13/18 11:57 Est GFR (Non-Af Amer) 33 03/13/18 11:57 POC Glucose (mg/dL) 134 mg/dL (65-110) H 03/15/18 10:48 Random Glucose 104 mg/dL (65-105) 03/13/18 11:57 Calcium 8.4 mg/dL (8.4-10.2) 03/13/18 11:57 Total Bilirubin 0.3 mg/dl (0.2-1.3) 03/12/18 15:00 AST 19 U/L (14-36) 03/12/18 15:00 ALT 25 U/L (9-52) 03/12/18 15:00 Alkaline Phosphatase 58 U/L (38-126) 03/12/18 15:00 Total Protein 5.6 G/DL (6.3-8.2) L 03/12/18 15:00 Albumin 2.5 g/dL (3.5-5.0) L 03/12/18 15:00 Globulin 3.1 gm/dL (2.2-3.9) 03/12/18 15:00 Albumin/Globulin Ratio 0.8 (1.0-2.1) L 03/12/18 15:00 Urine Color Yellow (YELLOW) 03/14/18 19:12 Urine Clarity Slighty-cloudy (Clear) 03/14/18 19:12 Urine pH 5.0 (5.0-8.0) 03/14/18 19:12 Ur Specific Green[place] 1.015 (1.003-1.030) 03/14/18 19:12 Urine Protein 100 mg/dL (NEGATIVE) 03/14/18 19:12 Urine Glucose (UA) Neg mg/dL (Normal) 03/14/18 19:12 Urine Ketones Negative mg/dL (NEGATIVE) 03/14/18 19:12 Urine Blood Small (NEGATIVE) 03/14/18 19:12 Urine Nitrate Negative (NEGATIVE) 03/14/18 19:12 Urine Bilirubin Negative (NEGATIVE) 03/14/18 19:12 Urine Urobilinogen 0.2-1.0 mg/dL (0.2-1.0) 03/14/18 19:12 Ur Leukocyte Esterase Mod Terry/uL (Negative) 03/14/18 19:12 Urine RBC (Auto) 2 /hpf (0-3) 03/14/18 19:12 Urine WBC Clumps (Auto) Few /hpf (NONE) H 03/14/18 19:12 Urine Microscopic WBC 37 /hpf (0-5) H 03/14/18 19:12 Ur Squamous Epith Cells 1 /hpf (0-5) 03/14/18 19:12 Urine Bacteria Rare (<OCC) 03/14/18 19:12 Hyaline Casts 3-5 /hpf (0-2) H 03/14/18 19:12 - Hospital Course Hospital Course: 87 yo female with history of CKD, HTN, DM2, CHF and CAD brought in from [facility] because of worsening mental status and agitation. She was supposed [facility] be [facility] but was unable to get in touched with patient's POA. Her urine was positive for infection. She was admitted to med/surg and started on antibiotics while waiting to reach for her POA to sign for her admission to Psych Unit. Patient was evaluated by psych and signed off. Pt UTI treated with Rocephin for 3 days. Patient stable for discharge. 1. AMS patient had similar incident a month ago where in she came in with confusion and pneumonia. After she was treated with IV antibiotics her condition improved. Her mental status also improved as well. this time patient was positive for UTI during urinalysis switch to Rocephin 1gm IV q 24hrs still waiting to reach for POA Urine Cx only 50-100K 2. CHF, Diastolic Dysfunction and Pulmonary HTN continue Isosorbide and Torsemide 3. DM2 BS controlled accuchek with Lispro coverage Glucotrol 10mg PO BOD 4. HTN BP controlled now with Losartan, Clonidine, Hydralazine and Torsemide Metoprolol DC because of bradycardia 5. CKD stage III continue monitoring 6. Dementia worsened during infection continue Remeron, Depakote 7. Bradycardia Metoprolol DC'd 8. DVT prophylaxis venodyne boots while in bed Discharge Exam - Head Exam Additional comments: Vitals Reviewed GEN: WDWN, alert, cooperative HEENT: NCAT, PERRL, EOMI HEART: RRR, +S1S2, NO MRG LUNG: CTAB, NO WRR ABD: soft, NT, ND, No HSM, No masses EXT: normal pedal pulses, normal capillary refill NEURO: awake, alert, no focal deficits SKIN: warm, dry PSYCH: normal mood, normal affect Discharge Plan - Follow Up Plan Condition: STABLE Instructions: Urinary Tract Infection, Adult (DC)
[2018-03-15 15:43] VITALS: BP 163/81; PULSE 72; TEMP 97.7
[2018-03-15] MEDS: Multivitamin With Minerals Tab PO SCH (17:30)
== END 2018-03-15 19:36 ==
LOC: H.ER 12:37 → H.ERHOLD 19:24 → H.MEDSURG1 21:17 → INTOOBSV 03-14 13:20 → OBSVTOIN 03-14 13:20
PROVIDERS: ADMIT Internal Medicine; ATTEND Internal Medicine
DX: F20.3 Undifferentiated schizophrenia (principal); I27.20 Pulmonary hypertension, unspecified; F41.9 Anxiety disorder, unspecified; E11.22 Type 2 diabetes mellitus with diabetic chronic kidney disease; K21.9 Gastro-esophageal reflux disease without esophagitis; E78.00 Pure hypercholesterolemia, unspecified; N18.3 Chronic kidney disease, stage 3 (moderate); I13.0 Hypertensive heart and chronic kidney disease with heart failure and stage 1 through stage 4 chronic kidney disease, or unspecified chronic kidney disease; I50.32 Chronic diastolic (congestive) heart failure; J44.9 Chronic obstructive pulmonary disease, unspecified; I25.10 Atherosclerotic heart disease of native coronary artery without angina pectoris; F03.91 Unspecified dementia, unspecified severity, with behavioral disturbance; Z95.5 Presence of coronary angioplasty implant and graft; N39.0 Urinary tract infection, site not specified; M10.9 Gout, unspecified; F32.9 Major depressive disorder, single episode, unspecified; D63.8 Anemia in other chronic diseases classified elsewhere; R00.1 Bradycardia, unspecified; M17.0 Bilateral primary osteoarthritis of knee
CPT/HCPCS: 36415; 71045; 80048; 80053; 81003; 81025; 82948; 84443; 85025; 85027; 87086; 93005; 96372; 99285; G0378; J0360; J0696; J0744; J0885; J1644; J1940